=== PATIENT | female | born 2000 | race African-American/Black ===

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

== ENCOUNTER 2019-05-27 10:03 | Emergency (ER) | payer OTHER ==
[~2019-05-27] VITALS: Ht 152.4 cm; Wt 64.4 kg
[2019-05-27] MEDS ORDERED: SODIUM CHLORIDE 0.9% 1,000 ML IV ONE ×2 (10:30→12:00)
[2019-05-27 10:49] LABS: Basophils # (auto) 0 uL; Basophils % (auto) 0.3 % (0.0-2.0); Eosinophils # (auto) 0 uL; Eosinophils % (auto) 0.1 % (0.0-7.0); Hematocrit 38.6 % (36.0-46.0); Hemoglobin 12.6 g/dL (12.2-16.2); Lymphocytes # (auto) 1.2 uL; Lymphocytes % (auto) 12.2 % (10.0-50.0); Mean Corpuscular Hemoglobin 28.4 pg (28.0-32.0); Mean Corpuscular Hgb Conc. 32.6 g/dL (32.0-36.0); Mean Corpuscular Volume 87.2 fL (80.0-100.0); Monocytes # (auto) 0.4 uL; Monocytes % (auto) 3.8 % (0.0-12.0); Neutrophils # (auto) 8.1 uL; Neutrophils % (auto) 83.6 % (37.0-80.0); Nucleated Red Blood Cells % 0.1 %; Platelet Count (auto) 240 10^3/uL (140-450); Red Blood Cells 4.42 10^6/uL (4.0-5.20); Red Cell Distribution Width 15.5 % (11.8-14.3); White Blood Cell 9.7 10^3/uL (4.4-10.8)
[2019-05-27 10:52] LABS: Urine Bacteria FEW /hpf (None Seen); Urine Blood 2+ /uL (Negative); Urine Specific Gravity 1.024 (1.001-1.035); Urine WBC 33 /hpf (0 - 5)
[2019-05-27 11:01] LABS: Albumin 3.9 g/dL (3.4-5.0); Calcium 9.8 mg/dL (8.5-10.1); Potassium 4.2 mmol/L (3.5-5.1)
[2019-05-27 11:05] LABS: BUN/Creatinine Ratio 16.5; Total Protein 8.9 g/dL (6.4-8.2)
[2019-05-27] MEDS ORDERED: SODIUM CHLORIDE 0.9% 1,000 ML IVB ONE (11:28)
[2019-05-27] MEDS ORDERED: DEXTROSE (50%) 50ML SYRG IV PRN (11:30)
[2019-05-27] MEDS ORDERED: PROMETHAZINE HCL 25 MG/ML 1ML IV ONE (12:00)
[2019-05-27] MEDS ORDERED: SODIUM BICARBONATE 8.4 % INJ 50ML VIAL IV ONE (12:15)
[2019-05-27] MEDS: ACCU-CHEK COMFORT CURVE STRIP VI SCH ×6 (13:12→19:55)
[2019-05-27] MEDS: InsuLIN R (HUMAN) 100 UNITS in SODIUM CHL 0.9% 99 ML IV SCH ×2 (13:12→20:01)
[2019-05-27] MEDS: SODIUM CHLORIDE 0.9% 1,000 ML IV SCH ×2 (13:12→13:49)
[2019-05-27] MEDS ORDERED: SODIUM CHLORIDE 0.9% 1,000 ML IV SCH ×2 (15:28→17:28)
[2019-05-27] MEDS ORDERED: cefTRIAXone 1GM/50ML D5W 50 ML IV ONE (15:45)
[2019-05-27 19:01] LABS: BUN/Creatinine Ratio 13.6; Calcium 8.5 mg/dL (8.5-10.1); Potassium 3.8 mmol/L (3.5-5.1)
[2019-05-27 20:03] VITALS: BP 117/55
== END 2019-05-27 18:27 | disposition short-term general hospital (02) ==
LOC: ER 10:05
DX: O26.891 Other specified pregnancy related conditions, first trimester (principal); O21.8 Other vomiting complicating pregnancy; O24.911 Unspecified diabetes mellitus in pregnancy, first trimester; E10.10 Type 1 diabetes mellitus with ketoacidosis without coma; O23.41 Unspecified infection of urinary tract in pregnancy, first trimester; O99.321 Drug use complicating pregnancy, first trimester; F12.10 Cannabis abuse, uncomplicated; Z3A.09 9 weeks gestation of pregnancy
CPT/HCPCS: 36415; 36600; 76801; 80048; 80053; 81001; 82150; 82805; 82962; 83690; 83735; 84702; 85025; 96361; 96365; 96366; 96367; 96375; 99285; J0696; J1815; J2550

== ENCOUNTER 2020-04-12 12:48 | Emergency (ER) | payer OTHER ==
[~2020-04-12] VITALS: Ht 152.4 cm; Wt 62.6 kg
[2020-04-12] MEDS ORDERED: SODIUM CHLORIDE 0.9% 1,000 ML IVB ONE (13:30)
[2020-04-12 14:01] LABS: Basophils # (auto) 0 10 ^3/uL (0-0.2); Basophils % (auto) 0.4 % (0.0-2.0); Eosinophils # (auto) 0 10 ^3/uL (0-0.8); Eosinophils % (auto) 0.2 % (0.0-7.0); Lymphocytes # (auto) 2.2 10 ^3/uL (0.4-5.4); Monocytes # (auto) 0.7 10 ^3/uL (0-1.3); White Blood Cell 9.3 10^3/uL (4.4-10.8)
[2020-04-12 14:03] LABS: Hematocrit 40.3 % (36.0-46.0); Hemoglobin 13.4 g/dL (12.2-16.2); Lymphocytes % (auto) 24.1 % (10.0-50.0); Mean Corpuscular Hemoglobin 27.5 pg (28.0-32.0); Mean Corpuscular Hgb Conc. 33.2 g/dL (32.0-36.0); Mean Corpuscular Volume 82.6 fL (80.0-100.0); Monocytes % (auto) 7.1 % (0.0-12.0); Neutrophils # (auto) 6.3 10 ^3/uL (1.6-8.6); Neutrophils % (auto) 68.2 % (37.0-80.0); Nucleated Red Blood Cells % 0.3 %; Platelet Count (auto) 368 10^3/uL (140-450); Red Blood Cells 4.88 10^6/uL (4.0-5.20); Red Cell Distribution Width 17.5 % (11.8-14.3)
[2020-04-12 14:11] LABS: Albumin 4.3 g/dL (3.4-5.0); Calcium 10.7 mg/dL (8.5-10.1); Potassium 3.7 mmol/L (3.5-5.1)
[2020-04-12 14:13] LABS: INR 0.97 (0.9-1.15); Partial Thromboplastin Time 23.4 sec (23.0-31.2)
[2020-04-12 14:14] LABS: Magnesium 2.2 mg/dL (1.6-2.6)
[2020-04-12 14:15] LABS: BUN/Creatinine Ratio 12.4; Bilirubin, Total 0.5 mg/dL (0.2-1.0); Total Protein 10.4 g/dL (6.4-8.2)
[2020-04-12] MEDS ORDERED: ONDANSETRON HCL 4 MG/2 ML VIAL IV ONE (15:00)
[2020-04-12 17:29] LABS: Urine Bacteria NONE SEEN /hpf (None Seen); Urine Blood 3+ /uL (Negative); Urine Hyaline Cast FEW /lpf (0 - 2); Urine Mucus FEW (None Seen); Urine Specific Gravity 1.024 (1.001-1.035); Urine WBC 223 /hpf (0 - 5)
[2020-04-12] MEDS ORDERED: cefTRIAXone 1GM/50ML D5W 50 ML IV ONE (17:45)
[2020-04-12 18:30] VITALS: BP 122/92
== END 2020-04-12 19:40 | disposition home or self-care (01) ==
LOC: ER 12:48
DX: K52.9 Noninfective gastroenteritis and colitis, unspecified (principal); N39.0 Urinary tract infection, site not specified; R11.2 Nausea with vomiting, unspecified; E11.9 Type 2 diabetes mellitus without complications; Z79.899 Other long term (current) drug therapy
CPT/HCPCS: 36415; 71046; 74176; 80053; 81001; 83690; 83735; 84702; 85025; 85610; 85730; 96365; 96375; 99285; J0696; J2405; J7030

== ENCOUNTER 2020-05-20 05:40 | Emergency (ER) | payer OTHER, MEDICAID ==
[~2020-05-20] VITALS: Ht 152.4 cm; Wt 65.3 kg
[2020-05-20] MEDS ORDERED: SODIUM CHLORIDE 0.9% 1,000 ML IV ONE ×2 (07:15)
[2020-05-20 07:34] LABS: Urine Bacteria FEW /hpf (None Seen); Urine Blood Negative /uL (Negative); Urine Mucus FEW (None Seen); Urine Specific Gravity 1.026 (1.001-1.035); Urine WBC 7 /hpf (0 - 5)
[2020-05-20 08:06] LABS: Basophils # (auto) 0 10 ^3/uL (0-0.2); Eosinophils # (auto) 0 10 ^3/uL (0-0.8); Hemoglobin 10.9 g/dL (12.2-16.2); Lymphocytes # (auto) 0.7 10 ^3/uL (0.4-5.4); Monocytes # (auto) 0.6 10 ^3/uL (0-1.3); Neutrophils # (auto) 8.5 10 ^3/uL (1.6-8.6); White Blood Cell 9.8 10^3/uL (4.4-10.8)
[2020-05-20 08:08] LABS: Basophils % (auto) 0.2 % (0.0-2.0); Eosinophils % (auto) 0.1 % (0.0-7.0); Hematocrit 33.4 % (36.0-46.0); Lymphocytes % (auto) 7.3 % (10.0-50.0); Mean Corpuscular Hemoglobin 26.5 pg (28.0-32.0); Mean Corpuscular Hgb Conc. 32.5 g/dL (32.0-36.0); Mean Corpuscular Volume 81.6 fL (80.0-100.0); Monocytes % (auto) 5.9 % (0.0-12.0); Neutrophils % (auto) 86.5 % (37.0-80.0); Nucleated Red Blood Cells % 0.1 %; Platelet Count (auto) 198 10^3/uL (140-450); Red Cell Distribution Width 18.1 % (11.8-14.3)
[2020-05-20 08:50] VITALS: BP 109/43
[2020-05-20 09:09] LABS: Albumin 3.4 g/dL (3.4-5.0); Potassium 4.1 mmol/L (3.5-5.1)
[2020-05-20 09:19] LABS: BUN/Creatinine Ratio 13.7; Bilirubin, Total 0.6 mg/dL (0.2-1.0); Total Protein 7.9 g/dL (6.4-8.2)
[2020-05-20] MEDS ORDERED: ONDANSETRON HCL 4 MG/2 ML VIAL IV ONE (09:45)
[2020-05-20] MEDS ORDERED: MORPHINE SULF INJ 2 MG/ML SYRINGE 1ML IV ONE (09:45)
== END 2020-05-20 13:08 | disposition home or self-care (01) ==
LOC: ER 05:40 → EDBD 05:40 → ER 13:08
DX: N39.0 Urinary tract infection, site not specified (principal); E11.65 Type 2 diabetes mellitus with hyperglycemia; R07.9 Chest pain, unspecified; Z32.02 Encounter for pregnancy test, result negative
CPT/HCPCS: 36415; 71045; 74176; 76705; 80053; 81001; 81025; 82150; 83036; 83690; 85025; 96361; 96374; 96375; 99285; J2270; J2405; J7030

== ENCOUNTER 2021-02-04 12:49 | Emergency (ER) | payer OTHER, MEDICAID ==
[~2021-02-04] VITALS: Ht 152.4 cm; Wt 66.4 kg
[2021-02-04 13:36] LABS: Basophils # (auto) 0 10 ^3/uL (0-0.2); Basophils % (auto) 0.4 % (0.0-2.0); Eosinophils # (auto) 0 10 ^3/uL (0-0.8); Eosinophils % (auto) 0.3 % (0.0-7.0); Hematocrit 36.9 % (36.0-46.0); Hemoglobin 11.9 g/dL (12.2-16.2); Lymphocytes # (auto) 0.7 10 ^3/uL (0.4-5.4); Mean Corpuscular Hemoglobin 28.3 pg (28.0-32.0); Mean Corpuscular Hgb Conc. 32.3 g/dL (32.0-36.0); Mean Corpuscular Volume 87.4 fL (80.0-100.0); Monocytes # (auto) 0.3 10 ^3/uL (0-1.3); Monocytes % (auto) 9.5 % (0.0-12.0); Neutrophils # (auto) 2.1 10 ^3/uL (1.6-8.6); Neutrophils % (auto) 67.8 % (37.0-80.0); Nucleated Red Blood Cells % 0.1 %; Red Blood Cells 4.22 10^6/uL (4.0-5.20); Red Cell Distribution Width 17.6 % (11.8-14.3); White Blood Cell 3.2 10^3/uL (4.4-10.8)
[2021-02-04 14:02] LABS: Albumin 3.3 g/dL (3.4-5.0); Calcium 8.7 mg/dL (8.5-10.1); Potassium 3.9 mmol/L (3.5-5.1)
[2021-02-04 14:05] LABS: BUN/Creatinine Ratio 11.6; Bilirubin, Total 0.5 mg/dL (0.2-1.0); Total Protein 7.4 g/dL (6.4-8.2)
[2021-02-04 14:26] LABS: Urine Bacteria NONE SEEN /hpf (None Seen); Urine Blood Negative /uL (Negative); Urine WBC 21 /hpf (0 - 5)
[2021-02-04] MEDS ORDERED: SODIUM CHLORIDE 0.9% 1,000 ML IV ONE ×2 (14:30→16:00)
[2021-02-04] MEDS ORDERED: ACETAMINOPHEN 500 MG TAB PO ONE (16:15)
[2021-02-04] MEDS ORDERED: cefTRIAXone 1GM/50ML D5W 50 ML IV ONE (16:15)
[2021-02-04] MEDS ORDERED: INSULIN LISPRO (HUMAN) 100 UNITS/ML ML SC ONE (17:30)
[2021-02-04] MEDS ORDERED: InsuLIN REG 1unit/0.01ml Soln (100units/ml) IV ONE (17:30)
[2021-02-04] MEDS ORDERED: SODIUM CHLORIDE 0.9% 1,000 ML IV STA (20:41)
[2021-02-04 22:00] VITALS: BP 119/72
== END 2021-02-04 23:19 | disposition home or self-care (01) ==
LOC: EDBD 12:51 → ER 12:51
DX: E11.65 Type 2 diabetes mellitus with hyperglycemia (principal); N39.0 Urinary tract infection, site not specified; E46 Unspecified protein-calorie malnutrition; F12.10 Cannabis abuse, uncomplicated
CPT/HCPCS: 36415; 80053; 81001; 81025; 82010; 82962; 85025; 96361; 96365; 96372; 96375; 99285; J0696; J1815; J7030

== ENCOUNTER 2021-10-01 06:52 | Emergency (ER) | payer OTHER, MEDICAID ==
[~2021-10-01] VITALS: Ht 152.4 cm; Wt 66.2 kg
[2021-10-01] MEDS ORDERED: SODIUM CHLORIDE 0.9% 1,000 ML IV ONE ×2 (07:30)
[2021-10-01 08:24] LABS: Basophils # (auto) 0.1 10 ^3/uL (0-0.2); Basophils % (auto) 1.6 % (0.0-2.0); Eosinophils # (auto) 0.1 10 ^3/uL (0-0.8); Eosinophils % (auto) 0.8 % (0.0-7.0); Hematocrit 37.3 % (36.0-46.0); Lymphocytes # (auto) 0.4 10 ^3/uL (0.4-5.4); Lymphocytes % (auto) 5.2 % (10.0-50.0); Mean Corpuscular Hgb Conc. 32.2 g/dL (32.0-36.0); Monocytes # (auto) 0.4 10 ^3/uL (0-1.3); Monocytes % (auto) 5.3 % (0.0-12.0); Neutrophils # (auto) 6.7 10 ^3/uL (1.6-8.6); Neutrophils % (auto) 87.1 % (37.0-80.0); Nucleated Red Blood Cells % 0.2 %; Red Blood Cells 4.28 10^6/uL (4.0-5.20); Red Cell Distribution Width 15.6 % (11.8-14.3); White Blood Cell 7.7 10^3/uL (4.4-10.8)
[2021-10-01 08:40] LABS: Albumin 3.3 g/dL (3.4-5.0); Calcium 9.2 mg/dL (8.5-10.1); Magnesium 2.2 mg/dL (1.6-2.6); Potassium 5.2 mmol/L (3.5-5.1)
[2021-10-01 08:49] LABS: BUN/Creatinine Ratio 15.1; Bilirubin, Total 0.7 mg/dL (0.2-1.0); Total Protein 8.4 g/dL (6.4-8.2)
[2021-10-01] MEDS ORDERED: LACTATED RINGER'S 2,000 ML IV ONE (09:15)
[2021-10-01] MEDS ORDERED: InsuLIN REG 1unit/0.01ml Soln (100units/ml) IV ONE ×2 (09:45→11:45)
[2021-10-01] MEDS ORDERED: cefTRIAXone W LIDOCAINE 1 GM IM IM ONE (09:45)
[2021-10-01 11:15] LABS: Urine WBC None Seen /hpf (0 - 5)
[2021-10-01 11:26] LABS: Urine Bacteria NONE SEEN /hpf (None Seen); Urine Blood 3+ /uL (Negative); Urine Specific Gravity 1.022 (1.001-1.035)
[2021-10-01] MEDS ORDERED: DOXYCYCLINE 100 MG TAB/CAP PO ONE (12:00)
[2021-10-01] MEDS ORDERED: DEXTROSE (50%) 50ML SYRG IV PRN ×2 (16:15→16:45)
[2021-10-01] MEDS ORDERED: InsuLIN R (HUMAN) 100 UNITS in SODIUM CHL 0.9% 99 ML IV SCH (16:15)
[2021-10-01] MEDS ORDERED: POTASSIUM CHLORIDE 20 MEQ in D5W/LACTATED RINGERS 1,000 ML IV SCH (16:15)
[2021-10-01] MEDS: ACCU-CHEK COMFORT CURVE STRIP VI SCH ×4 (18:08→22:30)
[2021-10-01 18:32] LABS: Calcium 9.5 mg/dL (8.5-10.1)
[2021-10-01 22:24] LABS: Albumin 3.4 g/dL (3.4-5.0); Calcium 9.7 mg/dL (8.5-10.1); Potassium 4.7 mmol/L (3.5-5.1)
[2021-10-01 22:28] LABS: Bilirubin, Total 0.3 mg/dL (0.2-1.0); Total Protein 8.8 g/dL (6.4-8.2)
[2021-10-02] MEDS: ACCU-CHEK COMFORT CURVE STRIP VI SCH ×2 (00:09→03:08)
[2021-10-02 03:34] VITALS: BP 98/48
== END 2021-10-02 04:03 | disposition short-term general hospital (02) ==
LOC: ER 06:52
DX: E11.65 Type 2 diabetes mellitus with hyperglycemia (principal); E86.0 Dehydration; A74.9 Chlamydial infection, unspecified; E71.32 Disorders of ketone metabolism; E11.9 Type 2 diabetes mellitus without complications; F12.10 Cannabis abuse, uncomplicated; Z20.822 Contact with and (suspected) exposure to COVID-19
CPT/HCPCS: 36415; 36600; 71045; 80048; 80053; 81001; 81025; 82010; 82805; 82962; 83690; 83735; 84484; 84702; 85025; 87426; 93005; 96361; 96365; 96372; 96376; 99285; J0696; J1815; J3480; J7030

== ENCOUNTER 2021-12-19 18:57 | Inpatient (IN) | payer OTHER, MEDICAID ==
[~2021-12-19] VITALS: Ht 152.4 cm; Wt 69.1 kg
[2021-12-19] MEDS ORDERED: SODIUM CHLORIDE 0.9% 1,000 ML IV ONE ×2 (19:30→19:45)
[2021-12-19 19:43] LABS: Eosinophils # (auto) 0 10 ^3/uL (0-0.8); Lymphocytes # (auto) 2.8 10 ^3/uL (0.4-5.4); Mean Corpuscular Hgb Conc. 30.6 g/dL (32.0-36.0); Monocytes # (auto) 0.5 10 ^3/uL (0-1.3); Nucleated Red Blood Cells % 0.1 %; White Blood Cell 6.6 10^3/uL (4.4-10.8)
[2021-12-19 19:44] LABS: Basophils # (auto) 0.1 10 ^3/uL (0-0.2); Basophils % (auto) 1.1 % (0.0-2.0); Eosinophils % (auto) 0.2 % (0.0-7.0); Hematocrit 44.2 % (36.0-46.0); Hemoglobin 13.6 g/dL (12.2-16.2); Lymphocytes % (auto) 42.4 % (10.0-50.0); Mean Corpuscular Hemoglobin 26.3 pg (28.0-32.0); Mean Corpuscular Volume 85.7 fL (80.0-100.0); Monocytes % (auto) 6.8 % (0.0-12.0); Neutrophils # (auto) 3.3 10 ^3/uL (1.6-8.6); Neutrophils % (auto) 49.5 % (37.0-80.0); Red Blood Cells 5.16 10^6/uL (4.0-5.20); Red Cell Distribution Width 17.6 % (11.8-14.3)
[2021-12-19 19:45] LABS: Urine Bacteria NONE SEEN /hpf (None Seen); Urine Blood Negative /uL (Negative); Urine Mucus FEW (None Seen); Urine Specific Gravity 1.023 (1.001-1.035); Urine WBC 43 /hpf (0 - 5)
[2021-12-19 19:50] LABS: INR 0.91 (0.9-1.15); Partial Thromboplastin Time 27.1 sec (24.6-33.4)
[2021-12-19 20:01] LABS: Albumin 3.9 g/dL (3.4-5.0); Calcium 9.7 mg/dL (8.5-10.1); Potassium 4.5 mmol/L (3.5-5.1)
[2021-12-19 20:03] LABS: Total Protein 9.4 g/dL (6.4-8.2)
[2021-12-19 20:03] LABS: Amphetamine Screen, Urine NEGATIVE (NEGATIVE); Barbiturate Scree,Urine NEGATIVE (NEGATIVE); Benzodiazephine Screen, Urine NEGATIVE (NEGATIVE); Cannabinoid Screen, Urine POSITIVE (NEGATIVE); Cocaine Screen, Urine NEGATIVE (NEGATIVE); Opiate Scree,Urine NEGATIVE (NEGATIVE); Phencyclidine Screen, Urine NEGATIVE (NEGATIVE)
[2021-12-19] MEDS ORDERED: cefTRIAXone SOD 1,000 MG VL IV ONE (20:15)
[2021-12-19] MEDS ORDERED: cefTRIAXone 1GM/50ML D5W 50 ML IV ONE ×2 (20:27→20:30)
[2021-12-19] MEDS ORDERED: DEXTROSE (50%) 50ML SYRG IV PRN (21:00)
[2021-12-19] MEDS: ACCU-CHEK COMFORT CURVE STRIP VI SCH ×3 (21:00→23:56)
[2021-12-19] MEDS ORDERED: InsuLIN R (HUMAN) 100 UNITS in SODIUM CHL 0.9% 99 ML IV SCH (21:00)
[2021-12-19] MEDS ORDERED: SOD CHL 0.9%/ KCL 20MEQ 1,000 ML IV SCH (21:00)
[2021-12-19] MEDS ORDERED: POTASSIUM CHL 20MEQ/100ML 200 ML IV PRN (21:00)
[2021-12-19 21:05] LABS: BUN/Creatinine Ratio 11.9
[2021-12-19] MEDS ORDERED: InsuLIN REG 1unit/0.01ml Soln (100units/ml) ONE (21:24)
[2021-12-19] MEDS ORDERED: ONDANSETRON HCL 4 MG/2 ML VIAL IV ONE (21:45)
[2021-12-20] MEDS ORDERED: DEXTROSE (50%) 50ML SYRG IV PRN ×3 (00:15→03:30)
[2021-12-20] MEDS ORDERED: NITROGLYCERIN 0.4 MG SL TAB SL PRN (00:15)
[2021-12-20] MEDS ORDERED: ONDANSETRON HCL 4 MG/2 ML VIAL IV PRN (00:15)
[2021-12-20] MEDS ORDERED: DOCUSATE SOD 100 MG CAP PO PRN (00:15)
[2021-12-20] MEDS ORDERED: ACETAMINOPHEN 325 MG TAB PO PRN (00:15)
[2021-12-20] MEDS ORDERED: HYDROcodone-ACET 5/325MG TAB PO PRN (00:15)
[2021-12-20] MEDS ORDERED: SODIUM CHLORIDE 0.9% 1,000 ML IV SCH (00:15)
[2021-12-20] MEDS ORDERED: MORPHINE SULFATE INJ 2 MG/ml SYRG IV PRN ×2 (00:15)
[2021-12-20 00:34] LABS: Anion Gap 20 (5-15); Chloride 114 mmol/L (98-107); Potassium 4.1 mmol/L (3.5-5.1); Sodium 139 mmol/L (136-145)
[2021-12-20 00:35] LABS: BUN/Creatinine Ratio 12.1; Blood Urea Nitrogen 16 mg/dL (7-18); Calcium 9.1 mg/dL (8.5-10.1); GFR African American 65 mL/min; GFR Non-African American 53 mL/min; Glucose 193 mg/dL (74-106)
[2021-12-20 00:37] LABS: Carbon Dioxide 5 mmol/L (21-32)
[2021-12-20] MEDS ORDERED: InsuLIN R (HUMAN) 100 UNITS in SODIUM CHL 0.9% 99 ML IV SCH (01:30)
[2021-12-20] MEDS: ACCU-CHEK COMFORT CURVE STRIP VI SCH ×7 (01:30→20:50)
[2021-12-20] MEDS ORDERED: DEXTROSE 50% SYRINGE 50 ML IV ONE (01:38)
[2021-12-20] MEDS ORDERED: D5W/SOD CHLO 0.9% 1,000 ML IV ONE (02:00)
[2021-12-20 03:10] LABS: BUN/Creatinine Ratio 11.9; Calcium 8.6 mg/dL (8.5-10.1); Potassium 5.4 mmol/L (3.5-5.1)
[2021-12-20] MEDS ORDERED: SODIUM BICARBONATE 8.4 % INJ 50ML VIAL IV ONE ×2 (03:30→05:00)
[2021-12-20] MEDS ORDERED: ACCU-CHEK COMFORT CURVE STRIP VI SCH (04:00)
[2021-12-20] MEDS ORDERED: InsuLIN REG 1unit/0.01ml Soln (100units/ml) SC SCH (04:00)
[2021-12-20] MEDS: InsuLIN REG 1unit/0.01ml Soln (100units/ml) SC SCH ×5 (04:09→20:56)
[2021-12-20 10:02] LABS: BUN/Creatinine Ratio 9.5; Calcium 8.8 mg/dL (8.5-10.1); Potassium 3.7 mmol/L (3.5-5.1)
[2021-12-20] MEDS: ENOXAPARIN SOD 40 MG/0.4 ML SYRINGE SC SCH (10:30)
[2021-12-20] MEDS: cefTRIAXone 1GM/50ML D5W 50 ML IV SCH (10:37)
[2021-12-20] MEDS: FAMOTIDINE (10MG/ML) 2ML VL IV SCH (10:37)
[2021-12-20 14:37] LABS: BUN/Creatinine Ratio 9.5; Calcium 8.9 mg/dL (8.5-10.1); Potassium 3.1 mmol/L (3.5-5.1)
[2021-12-20] MEDS ORDERED: SODIUM CHLORIDE 0.9% 1,000 ML IV ONE (14:45)
[2021-12-20 15:05] LABS: Creatinine, Urine 19 mg/dL (30.0-125.0); Sodium Urine 68 mmol/L (40-220)
[2021-12-20 18:49] LABS: Calcium 8.7 mg/dL (8.5-10.1); Potassium 3.2 mmol/L (3.5-5.1)
[2021-12-20] MEDS ORDERED: INSULIN LANTUS (GLARGINE) 1 /0.01ml (100units/ml) SC SCH (22:00)
[2021-12-21] MEDS: ACCU-CHEK COMFORT CURVE STRIP VI SCH ×6 (00:25→20:23)
[2021-12-21] MEDS: InsuLIN REG 1unit/0.01ml Soln (100units/ml) SC SCH ×6 (00:32→20:00)
[2021-12-21] MEDS ORDERED: DEXTROSE (50%) 50ML SYRG IV PRN (00:45)
[2021-12-21 04:10] LABS: Basophils # (auto) 0.1 10 ^3/uL (0-0.2); Basophils % (auto) 0.8 % (0.0-2.0); Eosinophils # (auto) 0 10 ^3/uL (0-0.8); Eosinophils % (auto) 0.7 % (0.0-7.0); Hematocrit 33.2 % (36.0-46.0); Hemoglobin 10.9 g/dL (12.2-16.2); Lymphocytes % (auto) 31.6 % (10.0-50.0); Mean Corpuscular Hgb Conc. 32.9 g/dL (32.0-36.0); Monocytes # (auto) 0.4 10 ^3/uL (0-1.3); Monocytes % (auto) 6.8 % (0.0-12.0); Neutrophils # (auto) 3.9 10 ^3/uL (1.6-8.6); Neutrophils % (auto) 60.1 % (37.0-80.0); Red Blood Cells 4.04 10^6/uL (4.0-5.20); White Blood Cell 6.4 10^3/uL (4.4-10.8)
[2021-12-21 04:28] LABS: Calcium 8.8 mg/dL (8.5-10.1)
[2021-12-21 04:31] LABS: BUN/Creatinine Ratio 9.7
[2021-12-21 04:34] LABS: Bilirubin, Total 0.4 mg/dL (0.2-1.0); Potassium 2.8 mmol/L (3.5-5.1); Total Protein 7.3 g/dL (6.4-8.2)
[2021-12-21] MEDS: POTASSIUM CHL 20MEQ/100ML 100 ML IV SCH ×2 (04:51→06:53)
[2021-12-21] MEDS: cefTRIAXone 1GM/50ML D5W 50 ML IV SCH (08:52)
[2021-12-21] MEDS: FAMOTIDINE (10MG/ML) 2ML VL IV SCH (09:18)
[2021-12-21] MEDS: ENOXAPARIN SOD 40 MG/0.4 ML SYRINGE SC SCH (09:19)
[2021-12-21] MEDS ORDERED: POTASSIUM CHL 20 Meq TABLET PO ONE (10:15)
[2021-12-21 11:01] LABS: Phosphorus 1.5 mg/dL (2.5-4.90)
[2021-12-21 11:32] LABS: Calcium 8.4 mg/dL (8.5-10.1); Potassium 3.8 mmol/L (3.5-5.1)
[2021-12-21] MEDS: INSULIN LANTUS (GLARGINE) 1 /0.01ml (100units/ml) SC SCH ×2 (13:07→22:00)
[2021-12-21 17:00] VITALS: BP 124/74
[2021-12-21] MEDS ORDERED: ERGOCALCIFEROL 50,000 UNIT(1.25MG) CAP PO SCH (17:00)
[2021-12-21 22:00] VITALS: BP 129/78
[2021-12-22] MEDS: ACCU-CHEK COMFORT CURVE STRIP VI SCH ×4 (00:07→12:25)
[2021-12-22] MEDS: InsuLIN REG 1unit/0.01ml Soln (100units/ml) SC SCH ×4 (00:09→12:27)
[2021-12-22 05:00] VITALS: BP_SYST 126; BP_SYST 149; BP_DIAS 62; BP_DIAS 66
[2021-12-22 06:21] LABS: BUN/Creatinine Ratio 12.2; Calcium 9.1 mg/dL (8.5-10.1); Magnesium 2.2 mg/dL (1.6-2.6); Phosphorus 2.7 mg/dL (2.5-4.90); Potassium 3.3 mmol/L (3.5-5.1)
[2021-12-22 09:00] VITALS: BP 123/54
[2021-12-22] MEDS ORDERED: POTASSIUM CHL 20 Meq TABLET PO ONE (09:30)
[2021-12-22] MEDS: cefTRIAXone 1GM/50ML D5W 50 ML IV SCH (09:33)
[2021-12-22] MEDS: FAMOTIDINE (10MG/ML) 2ML VL IV SCH (09:33)
[2021-12-22] MEDS: ENOXAPARIN SOD 40 MG/0.4 ML SYRINGE SC SCH (09:34)
[2021-12-22] MEDS: INSULIN LANTUS (GLARGINE) 1 /0.01ml (100units/ml) SC SCH (09:44)
[2021-12-22] MEDS ORDERED: FLUC200T35 PO (12:27)
[2021-12-22] MEDS ORDERED: ERGO1CAP23 PO (12:27)
== END 2021-12-22 13:32 | disposition home or self-care (01) | DRG 638 ==
LOC: ER 18:57 → OVERFLOW 12-20 00:02 → WEST WING 12-21 14:06 → TELE-WESTW 12-21 14:25 → WEST WING 12-22 00:08
PROVIDERS: ADMIT Nurse Practitioner Family; ATTEND Internal Medicine
DX: E10.10 Type 1 diabetes mellitus with ketoacidosis without coma (principal); E87.1 Hypo-osmolality and hyponatremia; N39.0 Urinary tract infection, site not specified; Z20.822 Contact with and (suspected) exposure to COVID-19; R00.0 Tachycardia, unspecified; E55.9 Vitamin D deficiency, unspecified; Z82.49 Family history of ischemic heart disease and other diseases of the circulatory system; Z83.3 Family history of diabetes mellitus; Z91.19 Patient's noncompliance with other medical treatment and regimen
CPT/HCPCS: 36415; 36600; 80048; 80053; 80061; 80307; 81001; 81025; 82010; 82306; 82570; 82805; 82962; 83036; 83735; 84100; 84300; 84443; 85025; 85610; 85730; 87086; 96361; 96365; 99291; G0378; J0696; J1815; J2405; J3480; J3490

== ENCOUNTER 2022-06-17 14:12 | Emergency (ER) | payer OTHER, MEDICAID ==
[~2022-06-17] VITALS: Ht 165.1 cm; Wt 70.0 kg
[~2022-06-17 14:12] MED LIST changes: +ERGO1CAP23 PO; +FLUC200T35 PO
[2022-06-17 14:28] VITALS: BP 125/71
[2022-06-17 15:12] LABS: Albumin 3.6 g/dL (3.4-5.0); Calcium 8.8 mg/dL (8.5-10.1); Potassium 4.2 mmol/L (3.5-5.1)
[2022-06-17] MEDS ORDERED: SODIUM CHLORIDE 0.9% 1,000 ML IV ONE (15:15)
[2022-06-17 15:17] LABS: BUN/Creatinine Ratio 11.7; Bilirubin, Total 0.9 mg/dL (0.2-1.0); Total Protein 7.9 g/dL (6.4-8.2)
[2022-06-17 16:12] LABS: Alcohol, Urine < 3.0 mg/dL (0-10); Amphetamine Screen, Urine NEGATIVE (NEGATIVE); Barbiturate Scree,Urine NEGATIVE (NEGATIVE); Benzodiazephine Screen, Urine NEGATIVE (NEGATIVE); Cannabinoid Screen, Urine POSITIVE (NEGATIVE)
[2022-06-17 16:15] LABS: Urine Bacteria FEW /hpf (None Seen); Urine Blood Negative /uL (Negative); Urine Specific Gravity 1.032 (1.001-1.035); Urine WBC 25 /hpf (0 - 5)
[2022-06-17 16:19] LABS: Cocaine Screen, Urine NEGATIVE (NEGATIVE); Opiate Scree,Urine NEGATIVE (NEGATIVE); Phencyclidine Screen, Urine NEGATIVE (NEGATIVE)
[2022-06-17] MEDS ORDERED: InsuLIN REG 1unit/0.01ml Soln (100units/ml) IV ONE (18:00)
== END 2022-06-17 19:42 | disposition left against medical advice (07) ==
LOC: ER 14:12 → EDBD 14:12 → ER 19:42
DX: R45.851 Suicidal ideations (principal); E11.65 Type 2 diabetes mellitus with hyperglycemia; F12.90 Cannabis use, unspecified, uncomplicated; Z53.29 Procedure and treatment not carried out because of patient's decision for other reasons
CPT/HCPCS: 36415; 80053; 80307; 81001; 81025; 82010; 85025

== ENCOUNTER 2023-01-12 10:30 | Emergency (ER) | payer OTHER, MEDICAID ==
[~2023-01-12] VITALS: Ht 152.4 cm; Wt 61.0 kg
[~2023-01-12 10:30] MED LIST changes: +FLUC200T PO; -FLUC200T35 PO
[2023-01-12] MEDS ORDERED: SODIUM CHLORIDE 0.9% 1,000 ML IV ONE ×2 (10:45)
[2023-01-12 10:55] LABS: Basophils # (auto) 0 10 ^3/uL (0-0.2); Basophils % (auto) 0.5 % (0.0-2.0); Eosinophils # (auto) 0 10 ^3/uL (0-0.8); Eosinophils % (auto) 0.5 % (0.0-7.0); Hematocrit 35.2 % (36.0-46.0); Hemoglobin 11.5 g/dL (12.2-16.2); Lymphocytes # (auto) 1.2 10 ^3/uL (0.4-5.4); Lymphocytes % (auto) 16.4 % (10.0-50.0); Mean Corpuscular Hemoglobin 28.9 pg (28.0-32.0); Mean Corpuscular Hgb Conc. 32.6 g/dL (32.0-36.0); Mean Corpuscular Volume 88.9 fL (80.0-100.0); Monocytes # (auto) 0.2 10 ^3/uL (0-1.3); Monocytes % (auto) 3.1 % (0.0-12.0); Neutrophils % (auto) 79.5 % (37.0-80.0); Red Blood Cells 3.96 10^6/uL (4.0-5.20); White Blood Cell 7.5 10^3/uL (4.4-10.8)
[2023-01-12 11:17] LABS: Alanine Aminotransferase 159 U/L (7-40); Albumin 4.1 g/dL (3.2-4.8); Alkaline Phosphatase 105 U/L (46-116); Anion Gap 11.6 (5-15); Aspartate Aminotransferase 741 U/L (13-40); BUN/Creatinine Ratio 15.2 (10.0-20.0); Bilirubin, Total 0.4 mg/dL (0.2-1.0); Blood Urea Nitrogen 12 mg/dL (9-23); Calcium 9.3 mg/dL (8.5-10.1); Carbon Dioxide 21.4 mmol/L (20-30); Chloride 105 mmol/L (98-107); Glucose 225 mg/dL (74-106); Potassium 3.5 mmol/L (3.5-5.1); Sodium 138 mmol/L (136-145); Total Protein 6.9 g/dL (5.7-8.2)
[2023-01-12 11:22] LABS: Urine Bacteria NONE SEEN /hpf (None Seen); Urine Blood Negative /uL (Negative); Urine Clarity Clear (Clear); Urine Color Colorless (Yellow); Urine Protein, UAD Negative (Negative); Urine Specific Gravity 1.037 (1.001-1.035); Urine Urobilinogen Normal (Negative); Urine WBC 2 /hpf (0 - 5)
[2023-01-12 11:40] LABS: Amphetamine Screen, Urine Neg (NEGATIVE); Barbiturate Scree,Urine Neg (NEGATIVE); Benzodiazephine Screen, Urine Neg (NEGATIVE); Cocaine Screen, Urine Neg (NEGATIVE)
[2023-01-12 11:41] LABS: Cannabinoid Screen, Urine Pos (NEGATIVE); Opiate Scree,Urine Neg (NEGATIVE); Phencyclidine Screen, Urine Neg (NEGATIVE)
[2023-01-12 14:52] VITALS: BP 112/61; PULSE 87; RESP 18; TEMP 98.6; O2SAT 100
== END 2023-01-12 14:54 | disposition home or self-care (01) ==
LOC: ER 10:30 → EDBD 10:30 → EDUNIT# 10:30 → ER 14:53
DX: E11.65 Type 2 diabetes mellitus with hyperglycemia (principal); R10.2 Pelvic and perineal pain; R11.2 Nausea with vomiting, unspecified; F12.90 Cannabis use, unspecified, uncomplicated; Z79.899 Other long term (current) drug therapy; Z79.84 Long term (current) use of oral hypoglycemic drugs
CPT/HCPCS: 36415; 80053; 80307; 81001; 84702; 85025; 96360; 96361; 99283; J7030

== ENCOUNTER 2023-02-21 21:31 | Emergency (ER) | payer OTHER, MEDICAID ==
[~2023-02-21] VITALS: Ht 170.2 cm; Wt 59.1 kg
[2023-02-21 22:10] VITALS: PULSE 96; RESP 24; O2SAT 98
[2023-02-21 22:38] LABS: Basophils # (auto) 0 10 ^3/uL (0-0.2); Mean Corpuscular Volume 89.8 fL (80.0-100.0)
[2023-02-21 22:48] LABS: Urine Bacteria NONE SEEN /hpf (None Seen); Urine Blood TRACE /uL (Negative); Urine Clarity Clear (Clear); Urine Color Colorless (Yellow); Urine Protein, UAD Negative (Negative); Urine Specific Gravity 1.021 (1.001-1.035); Urine Urobilinogen Normal (Negative); Urine WBC 5 /hpf (0 - 5); Urine pH 6.5 (5.0-8.0)
[2023-02-21 22:54] LABS: Basophils % (auto) 0.6 % (0.0-2.0); Eosinophils # (auto) 0 10 ^3/uL (0-0.8); Eosinophils % (auto) 0.2 % (0.0-7.0); Hematocrit 38.3 % (36.0-46.0); Hemoglobin 12.2 g/dL (12.2-16.2); Lymphocytes # (auto) 1.5 10 ^3/uL (0.4-5.4); Lymphocytes % (auto) 19.5 % (10.0-50.0); Mean Corpuscular Hemoglobin 28.5 pg (28.0-32.0); Mean Corpuscular Hgb Conc. 31.8 g/dL (32.0-36.0); Monocytes # (auto) 0.4 10 ^3/uL (0-1.3); Monocytes % (auto) 5.8 % (0.0-12.0); Neutrophils # (auto) 5.5 10 ^3/uL (1.6-8.6); Neutrophils % (auto) 73.9 % (37.0-80.0); Nucleated Red Blood Cells % 0.1 %; Red Blood Cells 4.26 10^6/uL (4.0-5.20); Red Cell Distribution Width 15.5 % (11.8-14.3); White Blood Cell 7.5 10^3/uL (4.4-10.8)
[2023-02-21 22:56] LABS: Alanine Aminotransferase 14 U/L (7-40); Albumin 4.5 g/dL (3.2-4.8); Alkaline Phosphatase 121 U/L (46-116); Anion Gap 16 (5-15); Aspartate Aminotransferase 23 U/L (13-40); Blood Urea Nitrogen 17 mg/dL (9-23); Calcium 9.9 mg/dL (8.7-10.4); Carbon Dioxide 19 mmol/L (20-30); Chloride 93 mmol/L (98-107); Potassium 5.1 mmol/L (3.5-5.1); Sodium 128 mmol/L (136-145)
[2023-02-21 22:57] LABS: Bilirubin, Total 0.6 mg/dL (0.2-1.0); Total Protein 7.6 g/dL (5.7-8.2)
[2023-02-21 23:05] LABS: Glucose 673 mg/dL (74-106)
[2023-02-21] MEDS ORDERED: LACTATED RINGER'S 2,000 ML IV ONE (23:15)
[2023-02-21] MEDS ORDERED: InsuLIN R (HUMAN) 100 UNITS in SODIUM CHL 0.9% 99 ML IV SCH (23:15)
[2023-02-21] MEDS ORDERED: DEXTROSE (50%) 50ML SYRG IV PRN (23:15)
[2023-02-21] MEDS ORDERED: InsuLIN REG 1unit/0.01ml Soln (100units/ml) ONE (23:28)
[2023-02-22] LABS: Magnesium 1.9 mg/dL (1.6-2.6)
[2023-02-22] MEDS: ACCU-CHEK COMFORT CURVE STRIP VI SCH ×5 (00:17→06:00)
[2023-02-22 02:30] LABS: COVID19 ANTIGEN SOFIA FIA NEGATIVE (NEGATIVE)
[2023-02-22] MEDS ORDERED: LACTATED RINGER'S 1,000 ML IV ONE (02:30)
[2023-02-22] MEDS ORDERED: D5W/SOD CHL 0.45%/KCL 20MEQ 1,000 ML IV ONE (03:30)
[2023-02-22 04:15] LABS: Alanine Aminotransferase 13 U/L (7-40); Alkaline Phosphatase 106 U/L (46-116); Anion Gap 12 (5-15); Aspartate Aminotransferase 15 U/L (13-40); BUN/Creatinine Ratio 11.4 (10.0-20.0); Bilirubin, Total 0.5 mg/dL (0.2-1.0); Blood Urea Nitrogen 12 mg/dL (9-23); Carbon Dioxide 18 mmol/L (20-30); Chloride 102 mmol/L (98-107); Glucose 343 mg/dL (74-106); Lactic Acid w/Reflex 3.1 mmol/L (0.4-2.0); Potassium 4.5 mmol/L (3.5-5.1); Sodium 132 mmol/L (136-145); Total Protein 6.6 g/dL (5.7-8.2)
[2023-02-22] MEDS ORDERED: InsuLIN REG 1unit/0.01ml Soln (100units/ml) IV ONE (05:30)
[2023-02-22 07:00] VITALS: BP 116/69; PULSE 100; RESP 16; TEMP 98.3; O2SAT 100
== END 2023-02-22 07:34 | disposition short-term general hospital (02) ==
LOC: ER 21:33
DX: S37.009A Unspecified injury of unspecified kidney, initial encounter (principal); R10.2 Pelvic and perineal pain; E11.10 Type 2 diabetes mellitus with ketoacidosis without coma; E86.0 Dehydration; R82.4 Acetonuria; E87.8 Other disorders of electrolyte and fluid balance, not elsewhere classified; R11.2 Nausea with vomiting, unspecified; F12.90 Cannabis use, unspecified, uncomplicated; Z79.899 Other long term (current) drug therapy; Z79.84 Long term (current) use of oral hypoglycemic drugs; Z20.822 Contact with and (suspected) exposure to COVID-19
CPT/HCPCS: 36415; 36600; 71045; 80053; 81001; 81025; 82010; 82805; 82962; 83605; 83690; 83735; 83880; 83930; 84702; 85025; 87426; 93005; 96361; 96365; 96366; 96368; 96376; 99291; J1815; 96375

== ENCOUNTER 2023-12-03 09:49 | Emergency (ER) | payer OTHER, MEDICAID ==
[~2023-12-03] VITALS: Ht 152.4 cm; Wt 62.0 kg
[2023-12-03 10:27] LABS: Basophils # (auto) 0 10 ^3/uL (0-0.2); Basophils % (auto) 0.2 % (0.0-2.0); Eosinophils # (auto) 0 10 ^3/uL (0-0.8); Eosinophils % (auto) 0.5 % (0.0-7.0); Hematocrit 35.2 % (36.0-46.0); Hemoglobin 11.6 g/dL (12.2-16.2); Lymphocytes # (auto) 0.5 10 ^3/uL (0.4-5.4); Lymphocytes % (auto) 8.2 % (10.0-50.0); Mean Corpuscular Hemoglobin 28.2 pg (28.0-32.0); Mean Corpuscular Volume 85.6 fL (80.0-100.0); Monocytes # (auto) 0.4 10 ^3/uL (0-1.3); Monocytes % (auto) 5.8 % (0.0-12.0); Neutrophils # (auto) 5.1 10 ^3/uL (1.6-8.6); Neutrophils % (auto) 85.3 % (37.0-80.0); Nucleated Red Blood Cells % 0.1 %; Red Blood Cells 4.11 10^6/uL (4.0-5.20); Red Cell Distribution Width 17.5 % (11.8-14.3)
[2023-12-03 10:43] LABS: Urine Bacteria FEW /hpf (None Seen); Urine Blood 3+ /uL (Negative); Urine Clarity Clear (Clear); Urine Color Light-Yellow (Yellow); Urine Protein, UAD Negative (Negative); Urine Specific Gravity 1.031 (1.001-1.035); Urine Urobilinogen Normal (Negative); Urine WBC 1 /hpf (0 - 5); Urine pH 6.5 (5.0-9.0)
[2023-12-03 10:46] LABS: Albumin 4.4 g/dL (3.2-4.8); Alkaline Phosphatase 116 U/L (46-116); Anion Gap 16 (5-15); Aspartate Aminotransferase 17 U/L (13-40); Blood Urea Nitrogen 13 mg/dL (9-23); Calcium 9.4 mg/dL (8.7-10.4); Carbon Dioxide 16 mmol/L (20-30); Chloride 100 mmol/L (98-107); Potassium 4.4 mmol/L (3.5-5.1); Sodium 132 mmol/L (136-145)
[2023-12-03 10:47] LABS: Bilirubin, Total 1.5 mg/dL (0.2-1.0); Total Protein 7.2 g/dL (5.7-8.2)
[2023-12-03 10:58] LABS: Glucose 543 mg/dL (74-106)
[2023-12-03 11:11] LABS: Alanine Aminotransferase 13 U/L (7-40)
[2023-12-03 11:13] LABS: Amphetamine Screen, Urine Neg (NEGATIVE); Barbiturate Scree,Urine Neg (NEGATIVE); Benzodiazephine Screen, Urine Neg (NEGATIVE); Cannabinoid Screen, Urine Pos (NEGATIVE); Cocaine Screen, Urine Neg (NEGATIVE); Opiate Scree,Urine Neg (NEGATIVE); Phencyclidine Screen, Urine Neg (NEGATIVE)
[2023-12-03] MEDS: KETOROLAC TROMETH 30 MG/ML 1ML VIAL IV ONE (11:15)
[2023-12-03] MEDS: SODIUM CHLORIDE 0.9% 1,000 ML IV ONE ×2 (11:15→12:23)
[2023-12-03] MEDS: diphenhdrAMINE HCL 50 MG/1 ML VL IV ONE (11:16)
[2023-12-03] MEDS: METOCLOPRAMIDE HCL 5MG/ml INJ 2ml VIAL IV ONE (11:16)
[2023-12-03] MEDS: InsuLIN REG 1unit/0.01ml Soln (100units/ml) IV ONE (11:26)
[2023-12-03 11:34] LABS: Base Excess -8.4 mmol/L (-2.0-2.0)
[2023-12-03] MEDS: ACCU-CHEK COMFORT CURVE STRIP VI SCH (12:00)
[2023-12-03] MEDS: INSULIN DRIP 100 UNIT/100ML 100 ML IV SCH (13:24)
[2023-12-03 13:28] VITALS: PULSE 88; RESP 16; O2SAT 98
[2023-12-03] MEDS: SODIUM CHLORIDE 0.9% 2,000 ML IV ONE (14:16)
[2023-12-03 16:18] VITALS: BP 112/70; PULSE 92; RESP 16; TEMP 98.1; O2SAT 99
== END 2023-12-03 12:11 | disposition short-term general hospital (02) ==
LOC: ER 09:49
DX: E11.10 Type 2 diabetes mellitus with ketoacidosis without coma (principal); Z79.899 Other long term (current) drug therapy; Z79.4 Long term (current) use of insulin
CPT/HCPCS: 36415; 36600; 71045; 80053; 80307; 81001; 81025; 82010; 82805; 82962; 84484; 85025; 96361; 96365; 96366; 96375; 99291; J1200; J1815; J1885; J2765; J7030

== ENCOUNTER 2024-04-09 05:19 | Inpatient (IN) | payer MEDICAID, OTHER ==
[~2024-04-09] VITALS: Ht 152.4 cm; Wt 67.0 kg
--- NOTE | 2024-04-09 05:31 | PRN ---
Misceleneous Note Note Note i provided RME for this pt, who presented with one day of epigastric pain. pt had alcohol 2 days ago.EMT reports BS 307. pt's LMP was 03/29/24. pt reports nausea. pain does not radiate. no prior abdominal surgeries ANURADHA GARZA MD Apr 09, 2024 05:31
[2024-04-09 05:49] LABS: Basophils # (auto) 0 10 ^3/uL (0-0.2); Basophils % (auto) 0.2 % (0.0-2.0); Eosinophils # (auto) 0 10 ^3/uL (0-0.8); Eosinophils % (auto) 0.4 % (0.0-7.0); Hematocrit 34.8 % (36.0-46.0); Hemoglobin 11.5 g/dL (12.2-16.2); Lymphocytes # (auto) 0.8 10 ^3/uL (0.4-5.4); Lymphocytes % (auto) 14.3 % (10.0-50.0); Mean Corpuscular Hemoglobin 29.6 pg (28.0-32.0); Mean Corpuscular Hgb Conc. 33.2 g/dL (32.0-36.0); Mean Corpuscular Volume 89.1 fL (80.0-100.0); Monocytes # (auto) 0.3 10 ^3/uL (0-1.3); Neutrophils # (auto) 4.5 10 ^3/uL (1.6-8.6); Neutrophils % (auto) 80.1 % (37.0-80.0); Platelet Count (auto) 169 10^3/uL (140-450); Red Cell Distribution Width 15.8 % (11.8-14.3); White Blood Cell 5.6 10^3/uL (4.4-10.8)
[2024-04-09 06:03] LABS: Albumin 4.3 g/dL (3.2-4.8); Anion Gap 14 (5-15); BUN/Creatinine Ratio 12.3 (10.0-20.0); Blood Urea Nitrogen 10 mg/dL (9-23); Calcium 9.4 mg/dL (8.7-10.4); Chloride 99 mmol/L (98-107); Lipase 27 U/L (12-53); Potassium 3.7 mmol/L (3.5-5.1)
--- NOTE | 2024-04-09 06:03 | DVH ---
Exam: CT CT AB PEL WO CON-NO ORAL OR IV History: upper abdominal pain Comparison Study: CT scan of the abdomen pelvis dated 05/20/2020. Technique: Multidetector spiral CT of the abdomen and pelvis was performed from lung bases to pubic s ymphysis. Imaging was performed without intravenous contrast. Coronal and sagittal multiplanar refor mats were obtained from the axial data set by the technologist. Radiation Dose : 1. Abdomen/Pelvis: CTDIvol 6.2 mGy, DLP 320.44 mGy*cm. Findings: Evaluation of vasculature and solid organs is limited due to lack of intravenous contrast use. Lung Bases: Lung bases are clear. Visualized portions of the heart and pericardium are unremarkable. Liver: The liver is normal in size. No focal lesions. Gallbladder and Biliary Tree: The gallbladder is unremarkable No intrahepatic or extrahepatic bilia ry ductal dilatation. Spleen: Unremarkable Pancreas: The pancreas is grossly unremarkable. Adrenal Glands: Unremarkable Kidneys: Kidneys are unremarkable without calculi or hydronephrosis. GI tract: The stomach is grossly normal in appearance. No evidence of small bowel wall thickening or abnormal dilatation to suggest bowel obstruction. The colon is unremarkable. The appendix is not vi sualized, however no inflammatory changes in the right lower quadrant to suggest acute appendicitis. Peritoneum/mesentery/retroperitoneum. No evidence of free intraperitoneal air. No ascites. No evidenc e of suspicious lymphadenopathy. Abdominal Wall: Unremarkable. Vasculature: The visualized abdominal aorta is normal in size and caliber. Evaluation of abdominal a nd pelvic vessels is limited due to lack of intravenous contrast. Urinary Bladder: Grossly unremarkable for degree of distention. Pelvic Organs: Unremarkable Musculoskeletal: No aggressive focal bony lesions, acute fractures or dislocation. IMPRESSION: 1. No acute abdominal or pelvic findings.
[2024-04-09 06:04] LABS: Total Protein 6.9 g/dL (5.7-8.2)
[2024-04-09 06:18] LABS: Alanine Aminotransferase 98 U/L (7-40); Alkaline Phosphatase 147 U/L (46-116); Aspartate Aminotransferase 472 U/L (13-40); Bilirubin, Total 1.2 mg/dL (0.2-1.0); Carbon Dioxide 19 mmol/L (20-31); Glucose 381 mg/dL (74-106); Sodium 132 mmol/L (136-145)
--- NOTE | 2024-04-09 07:15 | DVH ---
EXAM: US GALLBLADDER INDICATION: pain TECHNIQUE: Multiple real-time sonographic images were obtained of the right upper quadrant. COMPARISON: None FINDINGS: The liver demonstrates increased echotexture without focal mass lesions. Liver measures 19. 2 cm in length. There is hepatopedal color doppler flow in the main portal vein. There is no intrahe patic biliary ductal dilatation. The gallbladder is is contracted without evidence of stone or sludge. The gallbladder wall measures 0.2 cm. The common bile duct measures 0.3 cm. There is a negative sonographic Andino's sign. The right kidney measures 10.7 cm. The right kidney is normal in contour, size, and shape. The ech ogenicity is normal. There is no hydronephrosis. The pancreas is not well visualized due to overlying bowel gas. Visualized portions of the aorta and inferior vena cava are unremarkable. No evidence of ascites. IMPRESSION: 1. Hepatic steatosis and hepatomegaly. 2. Contracted gallbladder. No evidence of acute cholecystitis.
[2024-04-09] MEDS: SODIUM CHLORIDE 0.9% 1,000 ML IV ONE ×2 (07:55→10:13)
[2024-04-09] MEDS: ONDANSETRON HCL 4 MG/2 ML VIAL IV ONE (07:59)
[2024-04-09] MEDS: PANTOPRAZOLE 40 MG/10 ML VIAL INJ IV ONE (07:59)
--- NOTE | 2024-04-09 07:59 | ED.PDOC ---
History of Present Illness HPI Comments 23 y/o F, with a Hx of DM w/insulin use and EtOH and marijuana use, is BIBA for c/o LUQ abdominal and back pain for 1x day, today. Patient endorses on calling EMS for unprovoked onset of 9/10 "cramping" pain that starts in her abdomen, underneath her left breast, and radiates directly towards her back. Patient admits to no recent relevant or pertinent Hx aside from heavy EtOH intake a day prior to onset of symptoms, while celebrating her sister's 16th birthday democrat. Patient denies having any nausea, vomiting, diarrhea, urinary symptoms, fever, chills, or other associated symptoms or modifiers at this time. Chief Complaint: Abdominal Pain Time Seen by MD: 07:30 Primary Care Provider: DALE Reviewed Notes: Nurses Notes, Gasoline Plant Operator Notes, Medications, Allergies Allergies: Coded Allergies: No Known Drug Allergy (Verified Allergy, Unknown, 07/04/18) Home Meds Active Scripts Fluconazole (Diflucan) 200 Mg Tab, 1 TAB PO DAILY, #5 TAB Prov:MARYCARMEN DAVIES MD 12/22/21 Ergocalciferol (VITAMIN D 05961 UNIT) 50,000 [place], [address] UNIT PO Q7D for 10 Days, #10 CAP Prov:MARYCARMEN DAVIES MD 12/22/21 Reported Medications Insulin Regular (Human) (Novolin R) 100 Unit/Ml Inj, 1 UNITS IV, INJ 07/04/18 Insulin NPH (Human) (Isophane) (Humulin N) 100 Unit/Ml Inj, 9 UNIT SC, INJ 02/26/18 Information Source: Patient, Emergency Med Personnel Mode of Arrival: EMS Severity: Moderate Timing: Hours Duration: Since onset Prehospital treatment: 12 Lead EKG, Accucheck, Body Artist, Other (zofran ) Past Medical History PAST MEDICAL HISTORY: DM (w/insulin use) Surgical History: Denies all surgeries EXTRUSION PRESS OPERATOR History: No Pertinent EXTRUSION PRESS OPERATOR History Family History Family History: No family hx of Cancer, No family hx of DM, No family hx of Heart amalia, No family hx of HTN, No family hx ofKidney amalia, No family hx of Liver amalia, No family hx of Lung amalia, No family hx of Stroke, Family hx of DM, Family hx of Cancer (breast CA ), Family hx of HTN Social History Smoker: Non-Smoker Alcohol: Rarely Drugs: Marijuana Lives In: Home Constitutional: denies: chills, diaphoresis, fatigue, fever, malaise, sweats, weakness, others EENTM: denies: blurred vision, double vision, ear bleeding, ear discharge, ear drainage, ear pain, ear ringing, eye pain, eye redness, hearing loss, mouth pain, mouth swelling, nasal discharge, nose bleeding, nose congestion, nose pain, photophobia, tearing, throat pain, throat swelling, voice changes, others Respiratory: denies: cough, hemoptysis, orthopnea, SOB at rest, shortness of breath, SOB with excertion, stridor, wheezing, others Cardiovascular: denies: chest pain, dizzy spells, diaphoresis, Dyspnea on exertion, edema, irregular heart beat, left arm pain, lightheadedness, palpitations, PND, syncope, others Gastrointestinal: reports: abdomen distended (LUQ); denies: abdominal pain, blood streaked bowels, constipated, diarrhea, dysphagia, difficulty swallowing, hematemesis, melena, nausea, poor appetite, poor fluid intake, rectal bleeding, rectal pain, vomiting, others Genitourinary: denies: abnormal vagina bleeding, burning, dyspareunia, dysuria, flank pain, frequency, hematuria, incontinence, pain, , vagina discharge, urgency, others Neurological: denies: dizziness, fainting, headache, left sided numbness, left sided weakness, numbness, paresthesia, pre-existing deficit, right sided numbness, right sided weakness, seizure, speech problems, tingling, tremors, weakness, others Musculoskeletal: denies: back pain, gout, joint pain, joint swelling, muscle pain, muscle stiffness, neck pain, others Integumetry: denies: bruises, change in color, change in hair/nails, dryness, laceration, lesions, lumps, rash, wounds, others Allergic/Immunocompromised: denies: Difficulty Healing, Frequent Infections, Hives, Itching, others Hematologic/Lymphatic: denies: anemia, blood clots, easy bleeding, easy bruising, swollen glands, others Endocrine: denies: excessive hunger, excessive sweating, excessive thirst, excessive urination, flushing, intolerance to cold, intolerance to heat, unexplained weight gain, unexplained weight loss, others Psychiatric: denies: anxiety, bipolar disorder, depression, hopeless, panic disorder, schizophrenia, sleepless, suicidal, others All Other Systems: Reviewed and Negative Physical Exam General Appearance: Moderate Distress HEENT: Normal ENT Inspection, Pharynx Normal, TMs Normal Neck: Full Range of Motion, Non-Tender, Normal, Normal Inspection Respiratory: Chest Non-Tender, Lungs Clear, No Accessory Muscle Use, No Respiratory Distress, Normal Breath Sounds Cardiovascular: No Edema, No JVD, No Murmur, No Gallop, Normal Peripheral Pulses, Regular Rate/Rhythm Breast Exam: Deferred Gastrointestinal: Diffuse, No Organomegaly, No Pulsatile Mass, Normal Bowel Sounds, Soft, Tenderness Genitalia: Deferred Pelvic: Deferred Rectal: Deferred Extremities: No calf tenderness, Normal capillary refill, Normal inspection, Normal range of motion, Non-tender, No pedal edema Musculoskeletal : Apperance: Normal Neurologic: Alert, sap analyst II-XII nml as Tested, Motor Weakness, Normal Affect, Normal Mood, No Sensory Deficits Cerebellar Function: Normal Reflexes: Normal Skin: Dry, Normal Color, Warm Lymphatic: No Adenopathy Was a procedure done? Was a procedure done?: No Differential Dx Considerations may include: gastritis, gastroenteritis, nephrolithiasis, pyelonephritis, PUD, spoiled food, , acute abdomen X-Ray, Labs, Meds, VS Vital Signs Date Time Temp Pulse Resp B/P (MAP) Pulse Ox O2 Delivery O2 Flow Rate FiO2 04/09/24 09:15 94 15 116/74 04/09/24 08:04 98.0 98 16 122/75 (91) 98 98.0 04/09/24 08:01 98 16 122/75 04/09/24 05:24 98.2 102 18 110/71 (84) 96 Lab Test 04/09/24 11:15 04/09/24 10:04 04/09/24 08:00 04/09/24 05:34 Range/Units POC Glucose 296 H 436 *H 70-106 mg/dl Urine Color Colorless Yellow Urine Clarity Turbid H Clear Urine pH 5.5 5.0-9.0 Urine Specific [place] 1.033 1.001-1.035 Urine Protein Negative Negative Urine Ketones 2+ H Negative Urine Blood Negative Negative /uL Urine Nitrite Negative Negative Urine Bilirubin Negative Negative Urine Urobilinogen 3 H Negative mg/dL Urine Leukocyte Esterase 3+ Negative /uL Urine RBC 31 0 - 4 /hpf Urine WBC 22 0 - 5 /hpf Urine Squamous Epithelial Cells Mod <5 /hpf Urine Bacteria Few H None Seen /hpf Urine Glucose 4+ H Normal mg/dL White Blood Count 5.6 4.4-10.8 10^3/uL Red Blood Count 3.90 L 4.0-5.20 10^6/uL Hemoglobin 11.5 L 12.2-16.2 g/dL Hematocrit 34.8 L 36.0-46.0 % Mean Corpuscular Volume 89.1 80.0-100.0 fL Mean Corpuscular Hemoglobin 29.6 28.0-32.0 pg Mean Corpuscular Hemoglobin Concent 33.2 32.0-36.0 g/dL Red Cell Distribution Width 15.8 H 11.8-14.3 % Platelet Count 169 140-450 10^3/uL Mean Platelet Volume 9.0 6.9-10.8 fL Neutrophils (%) (Auto) 80.1 H 37.0-80.0 % Lymphocytes (%) (Auto) 14.3 10.0-50.0 % Monocytes (%) (Auto) 5.0 0.0-12.0 % Eosinophils (%) (Auto) 0.4 0.0-7.0 % Basophils (%) (Auto) 0.2 0.0-2.0 % Neutrophils # (Auto) 4.5 1.6-8.6 10 ^3/uL Lymphocytes # (Auto) 0.8 0.4-5.4 10 ^3/uL Monocytes # (Auto) 0.3 0-1.3 10 ^3/uL Eosinophils # (Auto) 0 0-0.8 10 ^3/uL Basophils # (Auto) 0 0-0.2 10 ^3/uL Nucleated Red Blood Cells 0.0 % Sodium Level 132 L 136-145 mmol/L Potassium Level 3.7 3.5-5.1 mmol/L Chloride Level 99 98-107 mmol/L Carbon Dioxide Level 19 L 20-31 mmol/L Anion Gap 14 5-15 Blood Urea Nitrogen 10 9-23 mg/dL Creatinine 0.81 0.550-1.02 mg/dL Glomerular Filtration Rate Calc 104 >90 mL/min BUN/Creatinine Ratio 12.3 10.0-20.0 Serum Glucose 381 H 74-106 mg/dL Calcium Level 9.4 8.7-10.4 mg/dL Total Bilirubin 1.2 H 0.2-1.0 mg/dL Aspartate Amino Transferase (AST) 472 H 13-40 U/L Alanine Aminotransferase (ALT) 98 H 7-40 U/L Alkaline Phosphatase 147 H 46-116 U/L Total Protein 6.9 5.7-8.2 g/dL Albumin 4.3 3.2-4.8 g/dL Lipase 27 12-53 U/L Beta HCG, Quantitative 0.3 L 1.5-4.2 mIU/mL Current Medications Medications (Trade) Dose Ordered Sig/Sushil Route Start Time Stop Time Status Last Admin Sodium Chloride 1,000 ml @ 1,000 mls/hr Q1H ONCE IV 04/09/24 05:30 04/09/24 06:29 DC 04/09/24 07:55 Ondansetron HCl (Zofran) 4 mg ONCE ONCE IV 04/09/24 05:30 04/09/24 05:32 DC 04/09/24 07:59 Pantoprazole Sodium (Protonix) 40 mg ONCE ONCE IV 04/09/24 07:45 04/09/24 07:46 MT 04/09/24 07:59 Morphine Sulfate 4 mg ONCE ONCE IV 04/09/24 07:45 04/09/24 07:46 MT 04/09/24 08:01 Ceftriaxone Sodium 50 ml @ 100 mls/hr ONCE ONCE IV 04/09/24 10:15 04/09/24 10:44 DC 04/09/24 10:13 Insulin Human Regular (InsuLIN R) 5 units ONCE ONCE IV 04/09/24 10:15 04/09/24 10:16 DC 04/09/24 10:16 Sodium Chloride 1,000 ml @ 1,000 mls/hr Q1H ONCE IV 04/09/24 10:15 04/09/24 11:14 DC 04/09/24 10:13 PROCEDURE(s): GBUS - GALLBLADDER IMPRESSION: 1. Hepatic steatosis and hepatomegaly. 2. Contracted gallbladder. No evidence of acute cholecystitis. PROCEDURE(s): ABPL - CT AB PEL WO CON-NO ORAL OR IV IMPRESSION: 1. No acute abdominal or pelvic findings. The patient was given a 1 L bolus of normal saline The patient was given Zofran 4 mg IV push for the nausea The patient was given Protonix 40 mg IV push The patient continues to have a significant amount of vomiting and pain The patient also has a urine test that is positive for UTI The patient was given Rocephin 1 g IV piggyback The patient was hyperglycemic and does have a history of diabetes The initial Accu-Chek was less than 400 but the repeat Accu-Chek came back at 436 At this time, the patient was being admitted We did contact [place] for possible authorization secondary to the patient's being unstable for transfer The authorization #[id number] Images Reviewed?: Images reviewed and evaluated by me Time of 1ST Reevaluation: 08:00 Reevaluation 1ST: Unchanged Patient Education/Counseling: Diagnosis, Treatment, Prognosis Family Education/Counseling: No Family Present Departure 1 Departure Time of Disposition: 09:41 Impression: Primary Impression: Intractable vomiting Additional Impressions: Acute abdominal pain UTI (urinary tract infection) Qualified Codes: N30.00 - Acute cystitis without hematuria Uncontrolled diabetes mellitus Qualified Codes: E13.65 - Other specified diabetes mellitus with hyperglycemia Disposition: ADMITTED INPATIENT Admit to: Med Surg Condition: Fair Critical Care Note Critical Care Time?: Yes (45 min-critical care time only) Stability Stability form required: Yes Unstable for transfer: Telemetry monitoring (Telemetry monitoring required), ED Physician Assesment (Clinical assesment) Heart Score Heart Score: Heart Score Response (Comments) Value History N/A 0 EKG N/A 0 Age N/A 0 Risk Factors N/A 0 Troponin N/A 0 Total 0 I personally scribed for OMAR HAILE MD ([email or web address]) on 04/09/24 at 07:59. Electronically submitted by Jaylan Syed ([email or web address]). OMAR HAILE MD Apr 09, 2024 07:59
[2024-04-09] MEDS: MORPHINE SULFATE INJ 2 MG/ml SYRG IV ONE (08:00)
[2024-04-09] MEDS: MORPHINE SULFATE 4 MG/ML SYR/VIAL IV ONE (08:01)
[2024-04-09 09:36] LABS: Urine Bacteria FEW /hpf (None Seen); Urine Blood Negative /uL (Negative); Urine Clarity Turbid (Clear); Urine Color Colorless (Yellow); Urine Protein, UAD Negative (Negative); Urine Specific Gravity 1.033 (1.001-1.035); Urine Urobilinogen 3 mg/dL (Negative); Urine WBC 22 /hpf (0 - 5); Urine pH 5.5 (5.0-9.0)
[2024-04-09] MEDS: cefTRIAXone 1GM/50ML D5W 50 ML IV ONE (10:13)
[2024-04-09] MEDS: InsuLIN REG 1unit/0.01ml Soln (100units/ml) IV ONE (10:16)
[2024-04-09] MEDS ORDERED: DEXTROSE (50%) 50ML SYRG IV PRN ×3 (13:00→18:00)
--- NOTE | 2024-04-09 13:00 | DVHHP2 ---
History of Present Illness Reason for Visit: abdominal pain History of Present Illness Vilma Walters is a 23YO F with pmHx DM, ETOH, and marijuana use who presents to the ED with LUQ abdominal pain x 1 day. Patient states she was at a sweet 16 for her sister and got "tore up". She reports her pain is currently a 0/10 but was 8/10, also reports she was just on her menstrual cycle 7 days ago. Patient denies N/V/D, chest pain, shortness of breath, fever, and chills. Endocrine: Diabetes Past Surgical History: None Family History: None Smoke: No ALCOHOL: heavy Drugs: Marijuana Lives: Alone Domestic Violence: Neg Review of Systems Constitutional: No: Fever, Chills, Sweats, Weakness, Malaise, Other Eyes: No: Pain, Vision change, Conjunctivae inflammation, Eyelid inflammation, Other, Redness ENT: No: Ear pain, Ear discharge, Nose pain, Nose discharge, Nose congestion, Mouth pain, Mouth swelling, Throat pain, Throat swelling, Other Respiratory: No: Cough, Dry, Shortness of breath, SOB with excertion, Wheezing, Hemoptysis, Pleuritic Pain, Sputum, Wheezing, Other Cardiovascular: No: Chest Pain, Palpitations, Orthopnea, Paroxysmal Noc. Dyspnea, Edema, Lt Headedness, Other Gastrointestinal: Abdominal Pain; No: Nausea, Vomiting, Diarrhea, Constipation, Melena, Hematochezia, Other Genitourinary: No Dysuria, No Frequency, No Incontinence, No Hematuria, No Retention, No Other Musculoskeletal: No: other, neck pain, shoulder pain, arm pain, back pain, hand pain, leg pain, foot pain Skin: No: Rash, Lesions, Jaundice, Bruising, Other Neurological: No: Weakness, Numbness, Incoordination, Change in speech, Confusion, Seizures, Other Allergies: Coded Allergies: No Known Drug Allergy (Verified Allergy, Unknown, 07/04/18) Exam Vital Signs Vital Signs Date Time Temp Pulse Resp B/P (MAP) Pulse Ox O2 Delivery O2 Flow Rate FiO2 04/09/24 09:15 94 15 116/74 04/09/24 08:04 98.0 98 98.0 General Appearance: Alert, Oriented X3, Cooperative, No acute distress HEENT: Atraumatic, PERRLA, Mucous membr. moist/pink Respiratory: Clear to auscultation, Normal air movement Cardiovascular: Regular rate, Normal S1, Normal S2, No murmurs Abdominal: Normal bowel sounds, Soft, No hepatospenomegaly, No masses Extremities: No cyanosis, No edema, Normal pulses, No tenderness/swelling Skin: No rashes, No breakdown, No significant lesion Neuro: Normal gait, Normal speech, Strength at 5/5 X4 ext, Normal tone, Sensation intact Psych/Mental Status: Mental status NL, Mood NL Labs/Xrays Labs Test 04/09/24 11:15 04/09/24 08:00 04/09/24 05:34 Range/Units POC Glucose 296 H 70-106 mg/dl Urine Color Colorless Yellow Urine Clarity Turbid H Clear Urine pH 5.5 5.0-9.0 Urine Specific [place] 1.033 1.001-1.035 Urine Protein Negative Negative Urine Ketones 2+ H Negative Urine Blood Negative Negative /uL Urine Nitrite Negative Negative Urine Bilirubin Negative Negative Urine Urobilinogen 3 H Negative mg/dL Urine Leukocyte Esterase 3+ Negative /uL Urine RBC 31 0 - 4 /hpf Urine WBC 22 0 - 5 /hpf Urine Squamous Epithelial Cells Mod <5 /hpf Urine Bacteria Few H None Seen /hpf Urine Glucose 4+ H Normal mg/dL White Blood Count 5.6 4.4-10.8 10^3/uL Red Blood Count 3.90 L 4.0-5.20 10^6/uL Hemoglobin 11.5 L 12.2-16.2 g/dL Hematocrit 34.8 L 36.0-46.0 % Mean Corpuscular Volume 89.1 80.0-100.0 fL Mean Corpuscular Hemoglobin 29.6 28.0-32.0 pg Mean Corpuscular Hemoglobin Concent 33.2 32.0-36.0 g/dL Red Cell Distribution Width 15.8 H 11.8-14.3 % Platelet Count 169 140-450 10^3/uL Mean Platelet Volume 9.0 6.9-10.8 fL Neutrophils (%) (Auto) 80.1 H 37.0-80.0 % Lymphocytes (%) (Auto) 14.3 10.0-50.0 % Monocytes (%) (Auto) 5.0 0.0-12.0 % Eosinophils (%) (Auto) 0.4 0.0-7.0 % Basophils (%) (Auto) 0.2 0.0-2.0 % Neutrophils # (Auto) 4.5 1.6-8.6 10 ^3/uL Lymphocytes # (Auto) 0.8 0.4-5.4 10 ^3/uL Monocytes # (Auto) 0.3 0-1.3 10 ^3/uL Eosinophils # (Auto) 0 0-0.8 10 ^3/uL Basophils # (Auto) 0 0-0.2 10 ^3/uL Nucleated Red Blood Cells 0.0 % Sodium Level 132 L 136-145 mmol/L Potassium Level 3.7 3.5-5.1 mmol/L Chloride Level 99 98-107 mmol/L Carbon Dioxide Level 19 L 20-31 mmol/L Anion Gap 14 5-15 Blood Urea Nitrogen 10 9-23 mg/dL Creatinine 0.81 0.550-1.02 mg/dL Glomerular Filtration Rate Calc 104 >90 mL/min BUN/Creatinine Ratio 12.3 10.0-20.0 Serum Glucose 381 H 74-106 mg/dL Calcium Level 9.4 8.7-10.4 mg/dL Total Bilirubin 1.2 H 0.2-1.0 mg/dL Aspartate Amino Transferase (AST) 472 H 13-40 U/L Alanine Aminotransferase (ALT) 98 H 7-40 U/L Alkaline Phosphatase 147 H 46-116 U/L Total Protein 6.9 5.7-8.2 g/dL Albumin 4.3 3.2-4.8 g/dL Lipase 27 12-53 U/L Beta HCG, Quantitative 0.3 L 1.5-4.2 mIU/mL EXAM: US GALLBLADDER INDICATION: pain FINDINGS: The liver demonstrates increased echotexture without focal mass lesions. Liver measures 19.2 cm in length. There is hepatopedal color doppler flow in the main portal vein. There is no intrahepatic biliary ductal dilatation. The gallbladder is is contracted without evidence of stone or sludge. The gallbladder wall measures 0.2 cm. The common bile duct measures 0.3 cm. There is a negative sonographic Andino's sign. The right kidney measures 10.7 cm. The right kidney is normal in contour, size, and shape. The echogenicity is normal. There is no hydronephrosis. The pancreas is not well visualized due to overlying bowel gas. Visualized portions of the aorta and inferior vena cava are unremarkable. No evidence of ascites. IMPRESSION: 1. Hepatic steatosis and hepatomegaly. 2. Contracted gallbladder. No evidence of acute cholecystitis. Exam: CT CT AB PEL WO CON-NO ORAL OR IV History: upper abdominal pain Findings: Evaluation of vasculature and solid organs is limited due to lack of intravenous contrast use. Lung Bases: Lung bases are clear. Visualized portions of the heart and pericar dium are unremarkable. Liver: The liver is normal in size. No focal lesions. Gallbladder and Biliary Tree: The gallbladder is unremarkable No intrahepatic or extrahepatic biliary ductal dilatation. Spleen: Unremarkable Pancreas: The pancreas is grossly unremarkable. Adrenal Glands: Unremarkable Kidneys: Kidneys are unremarkable without calculi or hydronephrosis. GI tract: The stomach is grossly normal in appearance. No evidence of small bowel wall thickening or abnormal dilatation to suggest bowel obstruction. The colon is unremarkable. The appendix is not visualized, however no inflammatory changes in the right lower quadrant to suggest acute appendicitis. Peritoneum/mesentery/retroperitoneum. No evidence of free intraperitoneal air. No ascites. No evidence of suspicious lymphadenopathy. Abdominal Wall: Unremarkable. Vasculature: The visualized abdominal aorta is normal in size and caliber. Evaluation of abdominal and pelvic vessels is limited due to lack of intravenous contrast. Urinary Bladder: Grossly unremarkable for degree of distention. Pelvic Organs: Unremarkable Musculoskeletal: No aggressive focal bony lesions, acute fractures or dislocation. IMPRESSION: 1. No acute abdominal or pelvic findings. Assessment/Plan Assessment/Plan Assessment: Intractable abdominal pain Plan: Admit to med surg Pain management IV antibiotics Antiemetics ISS and Accuchecks HgbA1C US Abd noted CT A/P noted Diet as tolerated Monitor labs Home meds reconciled Plan discussed with: Patient Problem List: (1) Intractable abdominal pain (2) Diabetes mellitus (3) Marijuana use Date of Service: Apr 09, 2024 Billing Provider: ELSA MAYA Common Visit Codes: 28162-XBNKKVA INP/OBS CARE (MOD) ELSA MAYA Apr 09, 2024 13:00
[2024-04-09] MEDS ORDERED: DOCUSATE SOD 100 MG CAP PO PRN (13:30)
[2024-04-09] MEDS ORDERED: MORPHINE SULFATE INJ 2 MG/ml SYRG IV PRN (13:30)
[2024-04-09] MEDS ORDERED: ACETAMINOPHEN 325 MG TAB PO PRN (13:30)
[2024-04-09] MEDS ORDERED: ONDANSETRON HCL 4 MG/2 ML VIAL IV PRN (13:30)
[2024-04-09] MEDS ORDERED: HYDROcodone-ACET 5/325MG TAB PO PRN (13:30)
[2024-04-09] MEDS: ERGOCALCIFEROL 50,000 UNIT(1.25MG) CAP PO SCH (15:26)
[2024-04-09] MEDS: InsuLIN REG 1unit/0.01ml Soln (100units/ml) SC SCH ×2 (15:53→22:26)
[2024-04-09] MEDS: ACCU-CHEK COMFORT CURVE STRIP VI SCH ×2 (15:56→22:25)
[2024-04-09] MEDS ORDERED: InsuLIN REG 1unit/0.01ml Soln (100units/ml) SC SCH ×2 (16:00→20:00)
[2024-04-09] MEDS ORDERED: ACCU-CHEK COMFORT CURVE STRIP VI SCH (16:00)
[2024-04-09 16:13] VITALS: BP 110/54; PULSE 89; RESP 17; O2SAT 98
[2024-04-09] MEDS: INSULIN LISPRO (HUMAN) 100 UNITS/ML ML SC ONE (18:00)
[2024-04-09 19:48] VITALS: BP 99/52; PULSE 81; RESP 18; TEMP 98.1; O2SAT 99
[2024-04-09 22:00] VITALS: BP 109/71; PULSE 89; RESP 18; TEMP 97.7; O2SAT 98
[2024-04-09] MEDS: ASCORBIC ACID 500 MG TAB PO SCH (22:25)
[2024-04-10 01:00] VITALS: BP 99/63; PULSE 80; RESP 18; TEMP 97.6; O2SAT 97
[2024-04-10 06:51] LABS: Basophils # (auto) 0 10 ^3/uL (0-0.2); Basophils % (auto) 0.4 % (0.0-2.0); Eosinophils # (auto) 0.1 10 ^3/uL (0-0.8); Eosinophils % (auto) 3.1 % (0.0-7.0); Hematocrit 33.1 % (36.0-46.0); Hemoglobin 10.8 g/dL (12.2-16.2); Lymphocytes # (auto) 1.8 10 ^3/uL (0.4-5.4); Lymphocytes % (auto) 51.6 % (10.0-50.0); Mean Corpuscular Hemoglobin 29.6 pg (28.0-32.0); Mean Corpuscular Hgb Conc. 32.8 g/dL (32.0-36.0); Mean Corpuscular Volume 90.3 fL (80.0-100.0); Monocytes # (auto) 0.3 10 ^3/uL (0-1.3); Neutrophils # (auto) 1.2 10 ^3/uL (1.6-8.6); Neutrophils % (auto) 34.9 % (37.0-80.0); Nucleated Red Blood Cells % 0.1 %; Platelet Count (auto) 167 10^3/uL (140-450); Red Blood Cells 3.67 10^6/uL (4.0-5.20); Red Cell Distribution Width 15.4 % (11.8-14.3); White Blood Cell 3.5 10^3/uL (4.4-10.8)
[2024-04-10 07:19] LABS: Alanine Aminotransferase 189 U/L (7-40); Albumin 3.7 g/dL (3.2-4.8); Alkaline Phosphatase 187 U/L (46-116); Anion Gap 11 (5-15); Aspartate Aminotransferase 244 U/L (13-40); BUN/Creatinine Ratio 10.7 (10.0-20.0); Blood Urea Nitrogen 9 mg/dL (9-23); Calcium 9.3 mg/dL (8.7-10.4); Carbon Dioxide 21 mmol/L (20-31); Chloride 105 mmol/L (98-107); Glucose 270 mg/dL (74-106); Sodium 137 mmol/L (136-145)
[2024-04-10 07:20] LABS: Bilirubin, Total 0.3 mg/dL (0.2-1.0); Total Protein 6.3 g/dL (5.7-8.2)
[2024-04-10 08:00] VITALS: PULSE 75; RESP 16; O2SAT 98
[2024-04-10] MEDS: MULTIPLE VITAMIN TAB PO SCH (08:54)
[2024-04-10] MEDS: ZINC SULFATE 220mg CAP or TAB PO SCH (08:54)
[2024-04-10 09:00] VITALS: BP 117/69; PULSE 75; RESP 16; O2SAT 98
[2024-04-10] MEDS: cefTRIAXone 1GM/50ML D5W 50 ML IV SCH (09:00)
--- NOTE | 2024-04-10 10:28 | DVHDS2 ---
Discharge Summary Date of Admission Apr 09, 2024 at 13:24 Date of Discharge: Apr 10, 2024 Labs/Diagnostic Data: Laboratory Results Test 04/10/24 07:58 04/10/24 05:13 04/09/24 08:00 04/09/24 05:34 POC Glucose 210 mg/dl (70-106) White Blood Count 3.5 10^3/uL (4.4-10.8) Red Blood Count 3.67 10^6/uL (4.0-5.20) Hemoglobin 10.8 g/dL (12.2-16.2) Hematocrit 33.1 % (36.0-46.0) Mean Corpuscular Volume 90.3 fL (80.0-100.0) Mean Corpuscular Hemoglobin 29.6 pg (28.0-32.0) Mean Corpuscular Hemoglobin Concent 32.8 g/dL (32.0-36.0) Red Cell Distribution Width 15.4 % (11.8-14.3) Platelet Count 167 10^3/uL (140-450) Mean Platelet Volume 9.6 fL (6.9-10.8) Neutrophils (%) (Auto) 34.9 % (37.0-80.0) Lymphocytes (%) (Auto) 51.6 % (10.0-50.0) Monocytes (%) (Auto) 10.0 % (0.0-12.0) Eosinophils (%) (Auto) 3.1 % (0.0-7.0) Basophils (%) (Auto) 0.4 % (0.0-2.0) Neutrophils # (Auto) 1.2 10 ^3/uL (1.6-8.6) Lymphocytes # (Auto) 1.8 10 ^3/uL (0.4-5.4) Monocytes # (Auto) 0.3 10 ^3/uL (0-1.3) Eosinophils # (Auto) 0.1 10 ^3/uL (0-0.8) Basophils # (Auto) 0 10 ^3/uL (0-0.2) Nucleated Red Blood Cells 0.1 % Sodium Level 137 mmol/L (136-145) Potassium Level 4.0 mmol/L (3.5-5.1) Chloride Level 105 mmol/L (98-107) Carbon Dioxide Level 21 mmol/L (20-31) Anion Gap 11 (5-15) Blood Urea Nitrogen 9 mg/dL (9-23) Creatinine 0.84 mg/dL (0.550-1.02) Glomerular Filtration Rate Calc 99 mL/min (>90) BUN/Creatinine Ratio 10.7 (10.0-20.0) Serum Glucose 270 mg/dL (74-106) Calcium Level 9.3 mg/dL (8.7-10.4) Total Bilirubin 0.3 mg/dL (0.2-1.0) Aspartate Amino Transferase (AST) 244 U/L (13-40) Alanine Aminotransferase (ALT) 189 U/L (7-40) Alkaline Phosphatase 187 U/L (46-116) Total Protein 6.3 g/dL (5.7-8.2) Albumin 3.7 g/dL (3.2-4.8) Urine Color Colorless (Yellow) Urine Clarity Turbid (Clear) Urine pH 5.5 (5.0-9.0) Urine Specific [place] 1.033 (1.001-1.035) Urine Protein Negative (Negative) Urine Ketones 2+ (Negative) Urine Blood Negative /uL (Negative) Urine Nitrite Negative (Negative) Urine Bilirubin Negative (Negative) Urine Urobilinogen 3 mg/dL (Negative) Urine Leukocyte Esterase 3+ /uL (Negative) Urine RBC 31 /hpf (0 - 4) Urine WBC 22 /hpf (0 - 5) Urine Squamous Epithelial Cells Mod /hpf (<5) Urine Bacteria Few /hpf (None Seen) Urine Glucose 4+ mg/dL (Normal) Hemoglobin A1c 9.5 % A1C (<5.7) Lipase 27 U/L (12-53) Beta HCG, Quantitative 0.3 mIU/mL (1.5-4.2) Other Laboratory Tests 04/10/24 05:13 Brief Hx & Hospital Course: see dictated note Condition at Discharge: Fair Final Diagnosis/Problems List abd pain Discharge Disposition: Acute Care Facility Discharge Instruct/Medications Diet: Consistent carbohydrate Activity: No Restrictions, As Tolerated Follow Up/Referral: fu with arnel Medications: per jul Discharge Statement: "Patient was advised to return to the ER or call 911 if any headaches, dizziness, shortness of breath, chest pain, abdominal pain, bleeding, fevers, or worsening of medical condition. Patient was counseled about treatment plan, medications, possible side effects, patientverbalized understanding. All questions were answered to the best of my ability. This discharge took greater then 30 minutes in planning, reviewing documentation, counseling the patient, and discussing with other team members." ASSESSMENT ASSESSMENT Assessment abd pain Date of Service: Apr 10, 2024 Billing Provider: ELIANA JENNINGS MD Common Visit Codes: 91069-MRG/OBS DISCH DAY >30min ELIANA JENNINGS MD Apr 10, 2024 10:27
[2024-04-10] MEDS: SODIUM CHLORIDE 0.9% 1,000 ML IV SCH (12:04)
[2024-04-10] MEDS: THIAMINE 100mg/ml INJ (200mg/2ml VIAL) IV ONE (12:04)
[2024-04-10] MEDS: PANTOPRAZOLE 40 MG/10 ML VIAL INJ IV ONE (12:04)
[2024-04-10] MEDS: INSULIN LANTUS (GLARGINE) 1 /0.01ml (100units/ml) SC SCH (12:21)
[2024-04-10 12:51] VITALS: BP 127/79; PULSE 90; RESP 17; TEMP 98.2; O2SAT 100
--- NOTE | 2024-04-10 14:28 | DVHDS ---
HISTORY OF PRESENT ILLNESS: The patient is a 23-year-old lady, who was admitted with complaints of abdominal pain and has a history of significant alcohol abuse as well as previous history of diabetes and alcohol use. HOSPITAL COURSE: The patient had a CT of abdomen and pelvis that showed no acute abnormality. The patient's lipase was within normal limits. Her liver function tests were elevated with AST of 472, ALT of 98 and alkaline phosphatase of 147. Her blood sugar was elevated at 436. The patient now wishes to go to [place] for further management. She will be transferred to [place] as per her wishes. FINAL DIAGNOSES: Therefore, * Abdominal pain, questionably secondary to acute gastritis. * Heavy alcohol abuse. * Transaminitis with questionable alcoholic liver disease/hepatic steatosis. * Diabetes mellitus. * Urinary tract infection. Time spent in discharge planning and review of plan with the patient, nursing and paperwork was 39 minutes. MD JANESSA Young/DARIEN/RUFINO TID: [id number] RECEIPT: [id number]
[2024-04-10 16:47] VITALS: BP 115/73; PULSE 81; RESP 16; TEMP 98; O2SAT 100
[2024-04-11] MEDS ORDERED: THIAMINE 100mg/ml INJ (200mg/2ml VIAL) IV SCH (10:00)
[2024-04-11] MEDS ORDERED: PANTOPRAZOLE 40 MG/10 ML VIAL INJ IV SCH (10:00)
== END 2024-04-10 18:50 | disposition short-term general hospital (02) | DRG 392 ==
LOC: EDBD 05:19 → ER 05:19 → OVERFLOW 13:24 → EAST 19:59
PROVIDERS: ATTEND Internal Medicine
DX: K29.00 Acute gastritis without bleeding (principal); N39.0 Urinary tract infection, site not specified; F10.10 Alcohol abuse, uncomplicated; K76.0 Fatty (change of) liver, not elsewhere classified; K70.9 Alcoholic liver disease, unspecified; Y90.9 Presence of alcohol in blood, level not specified; E11.65 Type 2 diabetes mellitus with hyperglycemia; Z79.4 Long term (current) use of insulin; Z79.899 Other long term (current) drug therapy
CPT/HCPCS: 36415; 74176; 76705; 80053; 80074; 81001; 82962; 83036; 83690; 84702; 85025; 99291; G0378; J1815; J2405; J2470

== ENCOUNTER 2025-04-10 12:03 | Inpatient (IN) | payer OTHER ==
[2025-04-10] VITALS (9 sets, daily range): BP systolic 103–130; BP diastolic 53–82; PULSE 81–121; RESP 16–26; TEMP 98.4; O2SAT 96–100
[~2025-04-10] VITALS: Ht 160 cm; Wt 68.3 kg
--- NOTE | 2025-04-10 12:17 | ED.PDOC ---
History of Present Illness HPI Comments 24F presents to the ER w/ prior MHx of DM(Takes Insulin) and the c/c of Hyperglycemia. Pt reports on having had a sudden onset of frequent urination and SOB since Tuesday of 04/07/25. Pt's BS in triage was at 444. Pt notes on being consistent w/ her insulin and has not missed any days. Pt has been to the ER at [facility] recently due from similar symptoms. Denies any symptoms at this time. Patient denies any CP, dizziness, numbness, weakness, tingling, fever, chills, or recent fall. Chief Complaint: Hyperglycemia Time Seen by MD: 12:15 Primary Care Provider: DALE Reviewed Notes: Nurses Notes, Medications, Allergies Allergies: Coded Allergies: No Known Drug Allergy (Verified Allergy, Unknown, 07/04/18) Home Meds Active Scripts Fluconazole (Diflucan) 200 Mg Tab, 1 TAB PO DAILY, #5 TAB Prov:MARYCARMEN DAVIES MD 12/22/21 Ergocalciferol (VITAMIN D 64941 UNIT) 50,000 [place], [address] UNIT PO Q7D for 10 Days, #10 CAP Prov:MARYCARMEN DAVIES MD 12/22/21 Reported Medications Insulin Regular (Human) (Novolin R) 100 Unit/Ml Inj, 1 UNITS IV, INJ 07/04/18 Insulin NPH (Human) (Isophane) (Humulin N) 100 Unit/Ml Inj, 9 UNIT SC, INJ 02/26/18 Information Source: Patient Mode of Arrival: Ambulatory Severity: Moderate Timing: Days Duration: Since onset, Days Prehospital treatment: None Past Medical History PAST MEDICAL HISTORY: DM (takes Insulin) Surgical History: Denies all surgeries PIT LABORER History: No Pertinent PIT LABORER History Family History Family History: Reviewed,noncontributory to illness, Family hx of Cancer Social History Smoker: Non-Smoker Alcohol: Rarely Drugs: Marijuana Lives In: Home Constitutional: denies: chills, diaphoresis, fatigue, fever, malaise, sweats, weakness, others EENTM: denies: blurred vision, double vision, ear bleeding, ear discharge, ear drainage, ear pain, ear ringing, eye pain, eye redness, hearing loss, mouth pain, mouth swelling, nasal discharge, nose bleeding, nose congestion, nose pain, photophobia, tearing, throat pain, throat swelling, voice changes, others Respiratory: reports: shortness of breath; denies: cough, hemoptysis, orthopnea, SOB at rest, SOB with excertion, stridor, wheezing, others Cardiovascular: denies: chest pain, dizzy spells, diaphoresis, Dyspnea on exe rtion, edema, irregular heart beat, left arm pain, lightheadedness, palpitations, PND, syncope, others Gastrointestinal: denies: abdomen distended, abdominal pain, blood streaked bowels, constipated, diarrhea, dysphagia, difficulty swallowing, hematemesis, melena, nausea, poor appetite, poor fluid intake, rectal bleeding, rectal pain, vomiting, others Genitourinary: reports: frequency; denies: abnormal vagina bleeding, burning, dyspareunia, dysuria, flank pain, hematuria, incontinence, pain, , vagina discharge, urgency, others Neurological: denies: dizziness, fainting, headache, left sided numbness, left sided weakness, numbness, paresthesia, pre-existing deficit, right sided numbness, right sided weakness, seizure, speech problems, tingling, tremors, weakness, others Musculoskeletal: denies: back pain, gout, joint pain, joint swelling, muscle pain, muscle stiffness, neck pain, others Integumetry: denies: bruises, change in color, change in hair/nails, dryness, laceration, lesions, lumps, rash, wounds, others Allergic/Immunocompromised: denies: Difficulty Healing, Frequent Infections, Hives, Itching, others Hematologic/Lymphatic: reports: others (Hyperglycemia); denies: anemia, blood c lots, easy bleeding, easy bruising, swollen glands Endocrine: denies: excessive hunger, excessive sweating, excessive thirst, excessive urination, flushing, intolerance to cold, intolerance to heat, unexplained weight gain, unexplained weight loss, others Psychiatric: denies: anxiety, bipolar disorder, depression, hopeless, panic disorder, schizophrenia, sleepless, suicidal, others All Other Systems: Reviewed and Negative Physical Exam General Appearance: Moderate Distress HEENT: Normal ENT Inspection, Pharynx Normal, TMs Normal Neck: Full Range of Motion, Non-Tender, Normal, Normal Inspection Respiratory: Chest Non-Tender, Decreased Breath Sounds, No Accessory Muscle Use, Respiratory Distress Cardiovascular: No Edema, No JVD, No Murmur, No Gallop, Tachycardia Breast Exam: Deferred Gastrointestinal: No Organomegaly, Non Tender, No Pulsatile Mass, Normal Bowel Sounds, Soft Genitalia: Deferred Pelvic: Deferred Rectal: Deferred Extremities: No calf tenderness, Normal capillary refill, Normal inspection, Normal range of motion, Non-tender, No pedal edema Musculoskeletal : Apperance: Normal Neurologic: welder plastic II-XII nml as Tested, Motor Weakness, Normal Affect, Normal Mood, No Sensory Deficits, Other (Mild lethargy) Cerebellar Function: Unable to Test Reflexes: Normal Skin: Dry, Pallor, Warm Lymphatic: No Adenopathy Was a procedure done? Was a procedure done?: No Differential Dx Considerations may include: Diabetic ketoacidosis, UTI X-Ray, Labs, Meds, VS Vital Signs Date Time Temp Pulse Resp B/P (MAP) Pulse Ox O2 Delivery O2 Flow Rate FiO2 04/10/25 12:25 121 26 96 Room Air* 0 21 04/10/25 12:04 98.6 121 26 147/89 98 98.6 Lab Test 04/10/25 12:49 04/10/25 12:44 04/10/25 12:33 04/10/25 12:11 Range/Units White Blood Count 6.6 4.4-10.8 10^3/uL Red Blood Count 4.59 4.0-5.20 10^6/uL Hemoglobin 12.7 12.2-16.2 g/dL Hematocrit 40.3 36.0-46.0 % Mean Corpuscular Volume 87.7 80.0-100.0 fL Mean Corpuscular Hemoglobin 27.6 L 28.0-32.0 pg Mean Corpuscular Hemoglobin Concent 31.5 L 32.0-36.0 g/dL Red Cell Distribution Width 17.9 H 11.8-14.3 % Platelet Count 241 140-450 10^3/uL Mean Platelet Volume 9.8 6.9-10.8 fL Neutrophils (%) (Auto) 58.0 37.0-80.0 % Lymphocytes (%) (Auto) 34.0 10.0-50.0 % Monocytes (%) (Auto) 7.3 0.0-12.0 % Eosinophils (%) (Auto) 0.3 0.0-7.0 % Basophils (%) (Auto) 0.4 0.0-2.0 % Neutrophils # (Auto) 3.8 1.6-8.6 10 ^3/uL Lymphocytes # (Auto) 2.2 0.4-5.4 10 ^3/uL Monocytes # (Auto) 0.5 0-1.3 10 ^3/uL Eosinophils # (Auto) 0 0-0.8 10 ^3/uL Basophils # (Auto) 0 0-0.2 10 ^3/uL Nucleated Red Blood Cells 0.1 % Sodium Level 134 L 136-145 mmol/L Potassium Level 3.8 3.5-5.1 mmol/L Chloride Level 101 98-107 mmol/L Carbon Dioxide Level < 10 *L 20-31 mmol/L Anion Gap 23.51426 H 5-15 Blood Urea Nitrogen 12 9-23 mg/dL Creatinine 1.24 H 0.550-1.02 mg/dL Glomerular Filtration Rate Calc 62 >90 mL/min BUN/Creatinine Ratio 9.7 L 10.0-20.0 Serum Glucose 440 *H 74-106 mg/dL Calcium Level 9.9 8.7-10.4 mg/dL Beta-Hydroxybutyric Acid > 4.500 H < 0.4 mmol/L Urine Color Colorless Yellow Urine Clarity Turbid H Clear Urine pH 5.0 5.0-9.0 Urine Specific [place] 1.027 1.001-1.035 Urine Protein Trace H Negative Urine Ketones 4+ H Negative Urine Blood Negative Negative /uL Urine Nitrite Negative Negative Urine Bilirubin Negative Negative Urine Urobilinogen Normal Negative mg/dL Urine Leukocyte Esterase 1+ Negative /uL Urine RBC 8 0 - 4 /hpf Urine Microscopic WBC 9 H 0-5 /HPF Urine Squamous Epithelial Cells Few <5 /hpf Urine Bacteria None seen None Seen /hpf Urine Glucose 4+ H Normal mg/dL Blood Gas Specimen Type Arterial Blood Gas Sample Site Left radial Blood Gas Patient Temperature 37.0 Arterial Blood Date Drawn Arterial Blood pH 7.291 L 7.350-7.450 Arterial Blood Partial Pressure CO2 16.5 *L 32.0-45.0 mmHg Arterial Blood Partial Pressure O2 100.1 83.0-108.0 mmHg Arterial Blood HCO3 7.8 L 21.0-28.0 mmol/L Arterial Blood Oxygen Saturation 97.3 94.0-98.0 % Arterial Blood Base Excess -16.2 L -2.0-3.0 mmol/L Arterial Blood Oxyhemoglobin 95.5 94.0-98.0 % Arterial Blood Carboxyhemoglobin 1.2 0.5-1.5 % Arterial Blood Methemoglobin 0.6 0.0-1.5 % Arterial Blood Deoxyhemoglobin 2.7 0.0-5.0 % Ras Test Yes Blood Gas Total Hemoglobin 13.40 12.0-16.0 g/dL Blood Gas Liter Flow 0.00 Blood Gas Modality Room air FiO2 % 21.0 Blood Gas Critical Value Read Back Yes Blood Gas Notified Whom erasto Tanner Blood Gas Notified Time [id number] Blood Gas Notified By Outside Sales daksha agosto POC Glucose 444 *H 70-106 mg/dl Current Medications Medications (Trade) Dose Ordered Sig/Sushil Route Start Time Stop Time Status Last Admin Sodium Chloride 1,000 ml @ 1,000 mls/hr Q1H ONCE IV 04/10/25 12:15 04/10/25 13:14 DC 04/10/25 12:25 Insulin Human Regular (InsuLIN R) 5 units ONCE ONCE IV 04/10/25 12:15 04/10/25 12:16 DC 04/10/25 12:43 IV Hep-Lock was established. The patient was given a 1 L bolus of normal saline. The patient was given an insulin drip. The patient's ABG shows a pH of 7.29/pCO2 of 16.5 The patient's chemistry panel was done with an anion gap greater than 23 and a CO2 level less than 10 The Accu-Chek as well as the serum glucose is over 440 The urine test was positive for UTI The patient has been started on Rocephin 1 g IV piggyback The CBC shows no sign of any leukocytosis There is no sign of any anemia. At this time, the patient is being admitted to the hospitalist. The patient is a [facility] patient and we did get an authorization 2. [id number] The patient is admitted to the ICU Images Reviewed?: Images reviewed and evaluated by me Time of 1ST Reevaluation: 12:45 Reevaluation 1ST: Unchanged Patient Education/Counseling: Diagnosis, Treatment, Prognosis Family Education/Counseling: No Family Present SEPSIS Sepsis Screen Date sepsis recognized/suspect: Apr 10, 2025 Time Sepsis recognized/suspect: 1208 Recent Procedure: No On Antibiotic Therapy: No Respiratory Rate >20: No Heart Rate >90: No Temp<36 C (96.8 F) or >38.3 C: No SBP <90 or MAP <65 mmHG: No New Acute Mental Status Change: No Is the patient on CPAP, BIPAP,: No Physician Orders Chest Portable (04/10/25 12:12) Heplock Iv (04/10/25 12:12) Office Copy Selector (04/10/25 12:12) Blood Pressure (04/10/25 12:12) Pulse Oximetry (04/10/25 12:12) Electrocardigram (04/10/25 12:12) Abg W/ Co-Ox (04/10/25 12:12) Insulin Drip 100 Unit/100ml (Myxredlin 1 (04/10/25 13:15) Glucose Blood (Accu-Chek Comfort Curve T (04/10/25 13:30) D/C All Diabetic Medications (04/10/25 13:08) Insulin Drip Protocol (04/10/25 13:08) Dextrose 50% Syringe (04/10/25 13:15) Insulin Lantus (Glargine) (Lantus) (04/11/25 10:00) Vital Signs Date Time Temp Pulse Resp B/P (MAP) Pulse Ox O2 Delivery O2 Flow Rate FiO2 04/10/25 12:25 121 26 96 Room Air* 0 21 04/10/25 12:04 98.6 121 26 147/89 98 98.6 Laboratory Tests Test 04/10/25 12:49 White Blood Count 6.6 10^3/uL (4.4-10.8) Medications Medications Dose Ordered Sig/Sushil Route Start Time Stop Time Status Last Admin Dose Admin Insulin Human Regular 5 units ONCE ONCE IV 04/10/25 12:15 04/10/25 12:16 DC 04/10/25 12:43 Sodium Chloride 1,000 ml @ 1,000 mls/hr Q1H ONCE IV 04/10/25 12:15 04/10/25 13:14 DC 04/10/25 12:25 Departure 1 Departure Time of Disposition: 13:59 Impression: Primary Impression: DKA (diabetic ketoacidosis) Qualified Codes: E10.10 - Type 1 diabetes mellitus with ketoacidosis without coma Additional Impression: Urinary tract infection Qualified Codes: N30.00 - Acute cystitis without hematuria Disposition: 09 ADMITTED INPATIENT Admit to: ICU Condition: Fair Critical Care Note Critical Care Time?: Yes (45 min-critical care time only) Stability Stability form required: Yes Unstable for transfer: ICU, CCU, PCU, BARBRA (Intensive VS monitoring), ED Physician Assesment (Clinical assesment) Heart Score Heart Score: Heart Score Response (Comments) Value History N/A 0 EKG N/A 0 Age N/A 0 Risk Factors N/A 0 Troponin N/A 0 Total 0 I personally scribed for OMAR HAILE MD ([email or web address]) on 04/10/25 at 12:17. Electronically submitted by Ignacio Mahajan ([email or web address]). OMAR HAILE MD Apr 10, 2025 12:17
[2025-04-10] MEDS: SODIUM CHLORIDE 0.9% 1,000 ML IV ONE (12:25)
[2025-04-10 12:40] LABS: Base Excess -16.2 mmol/L (-2.0-3.0)
[2025-04-10] MEDS: InsuLIN REG 1unit/0.01ml Soln (100units/ml) IV ONE (12:43)
[2025-04-10 13:03] LABS: Urine Protein, UAD TRACE (Negative)
[2025-04-10 13:12] LABS: Hematocrit 40.3 % (36.0-46.0); Hemoglobin 12.7 g/dL (12.2-16.2); Mean Corpuscular Hemoglobin 27.6 pg (28.0-32.0); Mean Corpuscular Volume 87.7 fL (80.0-100.0); Nucleated Red Blood Cells % 0.1 %
--- NOTE | 2025-04-10 13:13 | DVH ---
EXAM: XY CHEST PORTABLE Indication: weakness Technique: Single frontal view of the chest was obtained Comparison: XY CHEST PORTABLE on DOS: 12/03/23, XR CHEST 1 VIEW on DOS: 09/26/23, XY CHEST XRAY 1 VIEW on DOS: 02/22/23, CHEST PORTABLE on DOS: 10/01/21, CXRP on DOS: 10/01/21 FINDINGS: Lines and Tubes: None Lungs: No focal consolidation. Pleura: No effusion. No pneumothorax. Cardiomediastinal contours: Unremarkable Bones: No acute osseous abnormality. IMPRESSION: No acute cardiopulmonary disease.
[2025-04-10] MEDS ORDERED: DEXTROSE (50%) 50ML SYRG IV PRN (13:15)
[2025-04-10 13:18] LABS: Chloride 101 mmol/L (98-107); Potassium 3.8 mmol/L (3.5-5.1)
[2025-04-10 13:19] LABS: Anion Gap 23.00001 (5-15); Calcium 9.9 mg/dL (8.7-10.4)
[2025-04-10 13:24] LABS: BUN/Creatinine Ratio 9.7 (10.0-20.0); Blood Urea Nitrogen 12 mg/dL (9-23)
[2025-04-10 13:25] LABS: Sodium 134 mmol/L (136-145)
[2025-04-10] MEDS: ACCU-CHEK COMFORT CURVE STRIP VI SCH (13:30)
[2025-04-10 13:31] LABS: Carbon Dioxide < 10 mmol/L (20-31); Glucose 440 mg/dL (74-106)
[2025-04-10] MEDS: INSULIN LANTUS (GLARGINE) 1 /0.01ml (100units/ml) SC ONE (13:57)
[2025-04-10] MEDS: INSULIN DRIP 100 UNIT/100ML 100 ML IV SCH (13:59)
--- NOTE | 2025-04-10 14:28 | DVHHP2 ---
History of Present Illness Reason for Visit: Diabetes mellitus with ketoacidosis History of Present Illness The patient is a 24-year-old female with past medical history of diabetes mellitus who presented to [facility] ED with complaint of hyperglycemia. Patient reports that she has been experiencing sudden onset of frequent urination associated with shortness of breaths for the past 3 days. Patient states she is compliant with insulin regimen, not missing any days. Patient was seen and evaluated in the ED, laboratory data shows WBC 6.6, platelets 241, sodium 134, potassium 3.8, BUN 12, creatinine 1.24, GFR 62, glucose 440, anion gap 23.001, calcium 9.9, beta hydroxy acid > 4.500, blood pre ssure 147/89, heart rate 121 trending down to 98, temperature 98.6 F, O2 saturation 96% on room air. urinalysis positive for urinary tract infection, chest x-ray show no acute cardiopulmonary disease. Patient was started on IV antibiotic regimen Rocephin, please see medication orders section in the computer. On my assessment, patient denied chest pain, no headache, dizziness, diaphoresis, shortness of breaths, no diarrhea, nausea, vomiting, fever, no chills. Patient was admitted for further evaluation and medical management. Past Medical History DM Past Surgical History Denies all surgeries Family History Reviewed, noncontributory to the management of this case. Past Social History The patient lives at home, denies smoking, alcohol or illicit drugs abuse. Review of Systems Constitutional: No: Fever, Chills, Sweats, Weakness, Malaise, Other Eyes: No: Pain, Vision change, Conjunctivae inflammation, Eyelid inflammation, Other, Redness ENT: No: Ear pain, Ear discharge, Nose pain, Nose discharge, Nose congestion, Mouth pain, Mouth swelling, Throat pain, Throat swelling, Other Respiratory: Shortness of breath; No: Cough, Dry, SOB with excertion, Wheezing, Hemoptysis, Pleuritic Pain, Sputum, Wheezing, Other Cardiovascular: No: Chest Pain, Palpitations, Orthopnea, Paroxysmal Noc. Dyspnea, Edema, Lt Headedness, Other Gastrointestinal: No: Nausea, Vomiting, Abdominal Pain, Diarrhea, Constipation, Melena, Hematochezia, Other Genitourinary: No Dysuria; Frequency; No Incontinence, No Hematuria, No Retention, No Other Musculoskeletal: No: other, neck pain, shoulder pain, arm pain, back pain, hand pain, leg pain, foot pain Skin: No: Rash, Lesions, Jaundice, Bruising, Other Neurological: No: Weakness, Numbness, Incoordination, Change in speech, Confusion, Seizures, Other Allergies: Coded Allergies: No Known Drug Allergy (Verified Allergy, Unknown, 07/04/18) Medications Current Medications Medications Dose Ordered Sig/Sushil Route Start Time Stop Time Status Last Admin Dose Admin Insulin Human (Reg)/Sodium Chloride 100 ml @ 0.5 mls/hr Q24H IV 04/10/25 13:15 04/10/25 13:59 6 MLS/HR Diagnostic Test (Pha) 1 strip Q90MIN 04/10/25 13:30 04/10/25 13:30 1 STRIP Dextrose 50 ml PRN PRN IV 04/10/25 13:15 Insulin Glargine 15 units DAILY SC 04/11/25 10:00 Exam Vital Signs Vital Signs Date Time Temp Pulse Resp B/P (MAP) Pulse Ox O2 Delivery O2 Flow Rate FiO2 04/10/25 12:25 121 26 96 Room Air* 0 21 04/10/25 12:04 98.6 147/89 98.6 General Appearance: Alert, Oriented X3, Cooperative, No acute distress HEENT: Atraumatic, PERRLA, EOMI, Mucous membr. moist/pink Respiratory: Clear to auscultation, Normal air movement Cardiovascular: Regular rate, Normal S1, Normal S2, No murmurs Abdominal: Normal bowel sounds, Soft, No tenderness, No hepatospenomegaly, No masses Extremities: No clubbing, No cyanosis, No edema, Normal pulses, No tenderness/swelling Skin: No rashes, No significant lesion Neuro: Normal speech, Normal tone, Sensation intact, Cranial nerves 3-12 NL, Reflexes 2+, Other (Generalized weakness) Psych/Mental Status: Mental status NL, Mood NL Labs/Xrays Labs Test 04/10/25 12:49 04/10/25 12:44 04/10/25 12:33 04/10/25 12:11 Range/Units White Blood Count 6.6 4.4-10.8 10^3/uL Red Blood Count 4.59 4.0-5.20 10^6/uL Hemoglobin 12.7 12.2-16.2 g/dL Hematocrit 40.3 36.0-46.0 % Mean Corpuscular Volume 87.7 80.0-100.0 fL Mean Corpuscular Hemoglobin 27.6 L 28.0-32.0 pg Mean Corpuscular Hemoglobin Concent 31.5 L 32.0-36.0 g/dL Red Cell Distribution Width 17.9 H 11.8-14.3 % Platelet Count 241 140-450 10^3/uL Mean Platelet Volume 9.8 6.9-10.8 fL Neutrophils (%) (Auto) 58.0 37.0-80.0 % Lymphocytes (%) (Auto) 34.0 10.0-50.0 % Monocytes (%) (Auto) 7.3 0.0-12.0 % Eosinophils (%) (Auto) 0.3 0.0-7.0 % Basophils (%) (Auto) 0.4 0.0-2.0 % Neutrophils # (Auto) 3.8 1.6-8.6 10 ^3/uL Lymphocytes # (Auto) 2.2 0.4-5.4 10 ^3/uL Monocytes # (Auto) 0.5 0-1.3 10 ^3/uL Eosinophils # (Auto) 0 0-0.8 10 ^3/uL Basophils # (Auto) 0 0-0.2 10 ^3/uL Nucleated Red Blood Cells 0.1 % Sodium Level 134 L 136-145 mmol/L Potassium Level 3.8 3.5-5.1 mmol/L Chloride Level 101 98-107 mmol/L Carbon Dioxide Level < 10 *L 20-31 mmol/L Anion Gap 23.74999 H 5-15 Blood Urea Nitrogen 12 9-23 mg/dL Creatinine 1.24 H 0.550-1.02 mg/dL Glomerular Filtration Rate Calc 62 >90 mL/min BUN/Creatinine Ratio 9.7 L 10.0-20.0 Serum Glucose 440 *H 74-106 mg/dL Calcium Level 9.9 8.7-10.4 mg/dL Beta-Hydroxybutyric Acid > 4.500 H < 0.4 mmol/L Urine Color Colorless Yellow Urine Clarity Turbid H Clear Urine pH 5.0 5.0-9.0 Urine Specific [place] 1.027 1.001-1.035 Urine Protein Trace H Negative Urine Ketones 4+ H Negative Urine Blood Negative Negative /uL Urine Nitrite Negative Negative Urine Bilirubin Negative Negative Urine Urobilinogen Normal Negative mg/dL Urine Leukocyte Esterase 1+ Negative /uL Urine RBC 8 0 - 4 /hpf Urine Microscopic WBC 9 H 0-5 /HPF Urine Squamous Epithelial Cells Few <5 /hpf Urine Bacteria None seen None Seen /hpf Urine Glucose 4+ H Normal mg/dL Blood Gas Specimen Type Arterial Blood Gas Sample Site Left radial Blood Gas Patient Temperature 37.0 Arterial Blood Date Drawn [id number] Arterial Blood pH 7.291 L 7.350-7.450 Arterial Blood Partial Pressure CO2 16.5 *L 32.0-45.0 mmHg Arterial Blood Partial Pressure O2 100.1 83.0-108.0 mmHg Arterial Blood HCO3 7.8 L 21.0-28.0 mmol/L Arterial Blood Oxygen Saturation 97.3 94.0-98.0 % Arterial Blood Base Excess -16.2 L -2.0-3.0 mmol/L Arterial Blood Oxyhemoglobin 95.5 94.0-98.0 % Arterial Blood Carboxyhemoglobin 1.2 0.5-1.5 % Arterial Blood Methemoglobin 0.6 0.0-1.5 % Arterial Blood Deoxyhemoglobin 2.7 0.0-5.0 % Ras Test Yes Blood Gas Total Hemoglobin 13.40 12.0-16.0 g/dL Blood Gas Liter Flow 0.00 Blood Gas Modality Room air FiO2 % 21.0 Blood Gas Critical Value Read Back Yes Blood Gas Notified Whom erasto Tanner Blood Gas Notified Time [id number] Blood Gas Notified By daksha Schwartz POC Glucose 444 *H 70-106 mg/dl PATIENT: EARL CLARK ACCT: [id number] UNIT: [id number] : 2000 LOC: ER ROOM / BED: / AGE / SEX: 24 / F ADM STATUS: REG ER SERVICE 1212 ORDERING PHYSICIAN: OMAR HAILE MD PROCEDURE(s): CXRP - CHEST PORTABLE REASON: weakness ORDER NUMBER(s): [id number], ACCESSION NUMBER(s): [id number] EXAM: XY CHEST PORTABLE Indication: weakness Technique: Single frontal view of the chest was obtained Comparison: XY CHEST PORTABLE on DOS: 12/03/23, XR CHEST 1 VIEW on DOS: 09/26/23, XY CHEST XRAY 1 VIEW on DOS: 02/22/23, CHEST PORTABLE on DOS: 10/01/21, CXRP on DOS: 10/01/21 FINDINGS: Lines and Tubes: None Lungs: No focal consolidation. Pleura: No effusion. No pneumothorax. Cardiomediastinal contours: Unremarkable Bones: No acute osseous abnormality. IMPRESSION: No acute cardiopulmonary disease. SEPSIS Sepsis Screen Date sepsis recognized/suspect: Apr 10, 2025 Time Sepsis recognized/suspect: 1229 Recent Procedure: No On Antibiotic Therapy: No Respiratory Rate >20: Yes Heart Rate >90: Yes Temp<36 C (96.8 F) or >38.3 C: No SBP <90 or MAP <65 mmHG: No New Acute Mental Status Change: No Is the patient on CPAP, BIPAP,: No Physician Orders Chest Portable (04/10/25 12:12) Heplock Iv (04/10/25 12:12) Grain Processor (04/10/25 12:12) Blood Pressure (04/10/25 12:12) Pulse Oximetry (04/10/25 12:12) Electrocardigram (04/10/25 12:12) Abg W/ Co-Ox (04/10/25 12:12) Insulin Drip 100 Unit/100ml (Myxredlin 1 (04/10/25 13:15) Glucose Blood (Accu-Chek Comfort Curve T (04/10/25 13:30) D/C All Diabetic Medications (04/10/25 13:08) Insulin Drip Protocol (04/10/25 13:08) Dextrose 50% Syringe (04/10/25 13:15) Insulin Lantus (Glargine) (Lantus) (04/11/25 10:00) Ceftriaxone 1gm/50ml (Rocephin) (04/10/25 14:15) Consistent Carb(Ccho)Diabetes (04/10/25 Dinner) Admit (04/10/25 14:24) Allergies (04/10/25 14:24) Code Status (04/10/25 14:24) 0.9% Ns 1000 Ml (04/10/25 14:30) Oxygen Per Hour (04/10/25 14:24) Hydrocodone-Acet 5/325mg Tab (Orchard 5/32 (04/10/25 14:30) Ondansetron Hcl (Zofran) (04/10/25 14:30) Docusate Sodium Capsule (Colace Capsule) (04/10/25 14:30) Fall Risk Precautions In Place QSHIFT (04/10/25 14:24) Complete Blood Count (04/11/25 04:00) Comprehensive Metabolic Panel (04/11/25 04:00) Condition: Serious (04/10/25 14:24) Acetaminophen Tablet (Tylenol Tablet) (04/10/25 14:30) Maintain Bed Rest (04/10/25 14:24) Sequential Compression Device (04/10/25 ) Nitroglycerin Sublingual (Ntrostat Subli (04/10/25 14:30) Vital Signs Date Time Temp Pulse Resp B/P (MAP) Pulse Ox O2 Delivery O2 Flow Rate FiO2 04/10/25 12:25 121 26 96 Room Air* 0 21 04/10/25 12:04 98.6 121 26 147/89 98 98.6 Laboratory Tests Test 04/10/25 12:49 White Blood Count 6.6 10^3/uL (4.4-10.8) Medications Medications Dose Ordered Sig/Sushil Route Start Time Stop Time Status Last Admin Dose Admin Diagnostic Test (Pha) 1 strip Q90MIN 04/10/25 13:30 04/10/25 13:30 1 STRIP Insulin Glargine 15 units ONCE ONCE SC 04/10/25 13:15 04/10/25 13:16 DC 04/10/25 13:57 15 UNITS Insulin Human (Reg)/Sodium Chloride 100 ml @ 0.5 mls/hr Q24H IV 04/10/25 13:15 04/10/25 13:59 6 MLS/HR Insulin Human Regular 5 units ONCE ONCE IV 04/10/25 12:15 04/10/25 12:16 DC 04/10/25 12:43 5 UNITS Sodium Chloride 1,000 ml @ 1,000 mls/hr Q1H ONCE IV 04/10/25 12:15 04/10/25 13:14 DC 04/10/25 12:25 1,000 MLS/HR Assessment/Plan Assessment/Plan Diabetes mellitus with ketoacidosis Urinary tract infection Hyperglycemia due to diabetes mellitus Generalized weakness Plan 1. Admit to telemetry unit 2. Breathing treatment 3. Pain control management 4. IV antibiotic management 5. Management of fluids and electrolytes 6. Consultation for hospitalist 7. Diagnostic test chest x-ray 8. DVT prophylaxis on SCDs 9. Repeat labs CBC, CMP in a.m. 10. Home medication reviewed and reconciled 11. Continue with current medical management 12. Treatment plan discussed with patient and RN. Patient verbalized understanding. Plan discussed with: Patient, Other (RN) My Orders Orders - ALLIE FOX DNP Procedure Category Date Status Time Consistent DIET 04/10/25 Verified Carb(Ccho)Diabetes Dinner Admit ADMIT 04/10/25 Verified 14:24 Allergies DEVI 04/10/25 Verified 14:24 Code Status CODE 04/10/25 Verified 14:24 0.9% Ns 1000 Ml PHA 04/10/25 Verified 14:30 Oxygen Per Hour RT 04/10/25 Verified 14:24 Hydrocodone-Acet PHA 04/10/25 Verified 5/325mg Tab (Orchard 14:30 Ondansetron Hcl PHA 04/10/25 Verified (Zofran) 14:30 Docusate Sodium PHA 04/10/25 Verified Capsule (Colace 14:30 Fall Risk Precautions DEVI 04/10/[address] 14:24 Complete Blood Count LAB 04/11/25 Verified 04:00 Comprehensive LAB 04/11/25 Verified Metabolic Panel 04:00 Condition: Serious DEVI 04/10/25 Verified 14:24 Acetaminophen Tablet PHA 04/10/25 Verified (Tylenol Tablet) 14:30 Maintain Bed Rest DEVI 04/10/25 Verified 14:24 Sequential DEVI 04/10/25 Verified Compression Device Nitroglycerin PHA 04/10/25 Verified Sublingual (Ntrostat 14:30 Problem List: (1) Diabetes mellitus with ketoacidosis (2) Urinary tract infection (3) Hyperglycemia due to diabetes mellitus (4) Generalized weakness Date of Service: Apr 10, 2025 Billing Provider: ALLIE FOX DNP Common Visit Codes: [id number] INP/OBS CARE (HIGH) ALLIE FOX DNP Apr 10, 2025 14:28
[2025-04-10] MEDS ORDERED: ACETAMINOPHEN 325 MG TAB PO PRN (14:30)
[2025-04-10] MEDS ORDERED: DOCUSATE SOD 100 MG CAP PO PRN (14:30)
[2025-04-10] MEDS ORDERED: HYDROcodone-ACET 5/325MG TAB PO PRN (14:30)
[2025-04-10] MEDS ORDERED: ONDANSETRON HCL 4 MG/2 ML VIAL IV PRN (14:30)
[2025-04-10] MEDS ORDERED: NITROGLYCERIN 0.4 MG SL TAB SL PRN (14:30)
[2025-04-10] MEDS ORDERED: MORPHINE SULFATE INJ 2 MG/ml SYRG IV PRN (14:30)
[2025-04-10] MEDS: SODIUM CHLORIDE 0.9% 1,000 ML IV SCH (16:54)
[2025-04-10 21:10] LABS: Chloride 106 mmol/L (98-107); Potassium 3.6 mmol/L (3.5-5.1); Sodium 138 mmol/L (136-145)
[2025-04-10 21:11] LABS: Anion Gap 19 (5-15)
[2025-04-10 21:12] LABS: Calcium 9.5 mg/dL (8.7-10.4)
[2025-04-10 21:17] LABS: BUN/Creatinine Ratio 8.2 (10.0-20.0); Blood Urea Nitrogen 9 mg/dL (9-23); Glucose 118 mg/dL (74-106)
[2025-04-10 21:18] LABS: Carbon Dioxide 13 mmol/L (20-31)
[2025-04-11] VITALS (10 sets, daily range): BP systolic 97–135; BP diastolic 33–92; PULSE 82–92; RESP 15–20; TEMP 36.5; O2SAT 96–99
[2025-04-11 03:25] LABS: Hematocrit 34.8 % (36.0-46.0); Hemoglobin 11.2 g/dL (12.2-16.2); Mean Corpuscular Hemoglobin 27.4 pg (28.0-32.0); Mean Corpuscular Volume 84.8 fL (80.0-100.0); Nucleated Red Blood Cells % 0.1 %
[2025-04-11 03:33] LABS: Alanine Aminotransferase 13 U/L (7-40); Albumin 4.2 g/dL (3.2-4.8); Anion Gap 13 (5-15); BUN/Creatinine Ratio 8.2 (10.0-20.0); Calcium 9.1 mg/dL (8.7-10.4); Sodium 138 mmol/L (136-145); Total Protein 7.3 g/dL (5.7-8.2)
[2025-04-11 03:34] LABS: Bilirubin, Total 0.4 mg/dL (0.2-1.0)
[2025-04-11 03:47] LABS: Alkaline Phosphatase 124 U/L (46-116); Blood Urea Nitrogen 8 mg/dL (9-23); Carbon Dioxide 17 mmol/L (20-31); Chloride 108 mmol/L (98-107); Glucose 134 mg/dL (74-106); Potassium 3.2 mmol/L (3.5-5.1)
[2025-04-11] MEDS ORDERED: DEXTROSE (50%) 50ML SYRG IV PRN (04:15)
[2025-04-11] MEDS: POTASSIUM CHL 20 Meq TABLET PO ONE (04:48)
[2025-04-11] MEDS: ACCU-CHEK COMFORT CURVE STRIP VI SCH (08:58)
[2025-04-11] MEDS: InsuLIN REG 1unit/0.01ml Soln (100units/ml) SC SCH (08:58)
[2025-04-11] MEDS: INSULIN LANTUS (GLARGINE) 1 /0.01ml (100units/ml) SC SCH (10:31)
[2025-04-11 12:58] LABS: Chloride 105 mmol/L (98-107); Potassium 3.9 mmol/L (3.5-5.1); Sodium 137 mmol/L (136-145)
[2025-04-11 12:59] LABS: Anion Gap 14 (5-15); Calcium 9.5 mg/dL (8.7-10.4)
[2025-04-11 13:03] LABS: Carbon Dioxide 18 mmol/L (20-31)
[2025-04-11 13:04] LABS: BUN/Creatinine Ratio 7.3 (10.0-20.0)
[2025-04-11 13:05] LABS: Blood Urea Nitrogen 8 mg/dL (9-23); Glucose 329 mg/dL (74-106)
--- NOTE | 2025-04-11 15:12 | DVHDS2 ---
Discharge Summary Date of Admission Apr 10, 2025 at 14:50 Date of Discharge: Apr 11, 2025 Labs/Diagnostic Data: Laboratory Results Test 04/11/25 12:29 04/11/25 12:12 04/11/25 02:30 04/10/25 12:49 Sodium Level 137 mmol/L (136-145) Potassium Level 3.9 mmol/L (3.5-5.1) Chloride Level 105 mmol/L (98-107) Carbon Dioxide Level 18 mmol/L (20-31) Anion Gap 14 (5-15) Blood Urea Nitrogen 8 mg/dL (9-23) Creatinine 1.10 mg/dL (0.550-1.02) Glomerular Filtration Rate Calc 72 mL/min (>90) BUN/Creatinine Ratio 7.3 (10.0-20.0) Serum Glucose 329 mg/dL (74-106) Calcium Level 9.5 mg/dL (8.7-10.4) POC Glucose 279 mg/dl (70-106) White Blood Count 4.7 10^3/uL (4.4-10.8) Red Blood Count 4.11 10^6/uL (4.0-5.20) Hemoglobin 11.2 g/dL (12.2-16.2) Hematocrit 34.8 % (36.0-46.0) Mean Corpuscular Volume 84.8 fL (80.0-100.0) Mean Corpuscular Hemoglobin 27.4 pg (28.0-32.0) Mean Corpuscular Hemoglobin Concent 32.3 g/dL (32.0-36.0) Red Cell Distribution Width 17.7 % (11.8-14.3) Platelet Count 208 10^3/uL (140-450) Mean Platelet Volume 9.3 fL (6.9-10.8) Neutrophils (%) (Auto) 41.7 % (37.0-80.0) Lymphocytes (%) (Auto) 49.0 % (10.0-50.0) Monocytes (%) (Auto) 7.4 % (0.0-12.0) Eosinophils (%) (Auto) 1.3 % (0.0-7.0) Basophils (%) (Auto) 0.6 % (0.0-2.0) Neutrophils # (Auto) 1.9 10 ^3/uL (1.6-8.6) Lymphocytes # (Auto) 2.3 10 ^3/uL (0.4-5.4) Monocytes # (Auto) 0.3 10 ^3/uL (0-1.3) Eosinophils # (Auto) 0.1 10 ^3/uL (0-0.8) Basophils # (Auto) 0 10 ^3/uL (0-0.2) Nucleated Red Blood Cells 0.1 % Total Bilirubin 0.4 mg/dL (0.2-1.0) Aspartate Amino Transferase (AST) 16 U/L (13-40) Alanine Aminotransferase (ALT) 13 U/L (7-40) Alkaline Phosphatase 124 U/L (46-116) Total Protein 7.3 g/dL (5.7-8.2) Albumin 4.2 g/dL (3.2-4.8) Beta-Hydroxybutyric Acid > 4.500 mmol/L (< 0.4) Test 04/10/25 12:44 04/10/25 12:33 Urine Color Colorless (Yellow) Urine Clarity Turbid (Clear) Urine pH 5.0 (5.0-9.0) Urine Specific [place] 1.027 (1.001-1.035) Urine Protein Trace (Negative) Urine Ketones 4+ (Negative) Urine Blood Negative /uL (Negative) Urine Nitrite Negative (Negative) Urine Bilirubin Negative (Negative) Urine Urobilinogen Normal mg/dL (Negative) Urine Leukocyte Esterase 1+ /uL (Negative) Urine RBC 8 /hpf (0 - 4) Urine Microscopic WBC 9 /HPF (0-5) Urine Squamous Epithelial Cells Few /hpf (<5) Urine Bacteria None seen /hpf (None Seen) Urine Glucose 4+ mg/dL (Normal) Blood Gas Specimen Type Arterial Blood Gas Sample Site Left radial Blood Gas Patient Temperature 37.0 Arterial Blood Date Drawn [id number] Arterial Blood pH 7.291 (7.350-7.450) Arterial Blood Partial Pressure CO2 16.5 mmHg (32.0-45.0) Arterial Blood Partial Pressure O2 100.1 mmHg (83.0-108.0) Arterial Blood HCO3 7.8 mmol/L (21.0-28.0) Arterial Blood Oxygen Saturation 97.3 % (94.0-98.0) Arterial Blood Base Excess -16.2 mmol/L (-2.0-3.0) Arterial Blood Oxyhemoglobin 95.5 % (94.0-98.0) Arterial Blood Carboxyhemoglobin 1.2 % (0.5-1.5) Arterial Blood Methemoglobin 0.6 % (0.0-1.5) Arterial Blood Deoxyhemoglobin 2.7 % (0.0-5.0) Ras Test Yes Blood Gas Total Hemoglobin 13.40 g/dL (12.0-16.0) Blood Gas Liter Flow 0.00 Blood Gas Modality Room air FiO2 % 21.0 Blood Gas Critical Value Read Back Yes Blood Gas Notified Whom erasto Tanner Blood Gas Notified Time [id number] Blood Gas Notified By Recessing Machine Operator daksha agosto Other Laboratory Tests 04/11/25 12:29 04/11/25 02:30 Brief Hx & Hospital Course: 24-year-old female with past medical history of diabetes mellitus who presented to [facility] ED with complaint of hyperglycemia. Patient reports that she has been experiencing sudden onset of frequent urination associated with shortness of breaths for the past 3 days. Patient states she is compliant with insulin regimen, not missing any days. Patient was seen and evaluated in the ED, laboratory data shows WBC 6.6, platelets 241, sodium 134, potassium 3.8, BUN 12, creatinine 1.24, GFR 62, glucose 440, anion gap 23.001, calcium 9.9, beta hydroxy acid > 4.500, blood pressure 147/89, heart rate 121 trending down to 98, temperature 98.6 F, O2 saturation 96% on room air. urinalysis positive for urinary tract infection, chest x-ray show no acute cardiopulmonary disease. Patient was started on IV antibiotic regimen Rocephin, please see medication orders section in the computer. On my assessment, patient denied chest pain, no headache, dizziness, diaphoresis, shortness of breaths, no diarrhea, nausea, vomiting, fever, no chills. Patient was admitted for further evaluation and medical management. DKA got better on insulin Condition at Discharge: Good Final Diagnosis/Problems List DKA Discharge Disposition: Home Discharge Instruct/Medications Diet: Consistent carbohydrate Activity: No Restrictions, As Tolerated Follow Up/Referral: PCp in 7 days Medications: insulin Scheduled Ergocalciferol (Vitamin D 95414 Unit), 50,000 UNIT PO Q7D Fluconazole (Diflucan), 1 TAB PO DAILY Miscellaneous Medications Insulin NPH (Human) (Isophane) (Humulin N), 9 UNIT SC, (Reported) Insulin Regular (Human) (Novolin R), 1 UNITS IV, (Reported) Discharge Statement: "Patient was advised to return to the ER or call 911 if any headaches, dizziness, shortness of breath, chest pain, abdominal pain, bleeding, fevers, or worsening of medical condition. Patient was counseled about treatment plan, medications, possible side effects, patientverbalized understanding. All questions were answered to the best of my ability. This discharge took greater then 30 minutes in planning, reviewing documentation, counseling the patient, and discussing with other team members." ASSESSMENT ASSESSMENT Assessment DKA Date of Service: Apr 11, 2025 Billing Provider: SHAMIKA RUBY MD Common Visit Codes: [id number]/[id number] DISCH DAY >30min SHAMIKA RUBY MD Apr 11, 2025 15:12
== END 2025-04-11 17:30 | disposition home or self-care (01) | DRG 638 ==
LOC: ER 12:03 → OVERFLOW 14:24 → UNDOADMIN 14:24 → OVERFLOW 14:50 → TELE-CENTR 04-11 14:40
PROVIDERS: ADMIT Hospitalist; ATTEND Hospitalist
DX: E11.10 Type 2 diabetes mellitus with ketoacidosis without coma (principal); N39.0 Urinary tract infection, site not specified; Z79.4 Long term (current) use of insulin; Z80.9 Family history of malignant neoplasm, unspecified
CPT/HCPCS: 36415; 36600; 71045; 80048; 80053; 81001; 82010; 82805; 82962; 85025; 96361; 96374; 99291; G0378; J1815